=== PATIENT | male | born 1970 | race Caucasian/White ===

== ENCOUNTER → 2017-08-13 | Emergency (ER) | payer OTHER ==
[~2017-08-13] VITALS: Ht 177.8 cm; Wt 186.0 kg
[~2017-08-13] MED LIST: ATORVASTATIN CA40 M1 PO; CYCLOBENZAPRINE10 M1 PO; IBUPROFEN600 M1 PO; LISINOPRIL20 M1 PO; MEDROL4 M2 PO; OXYCODONE HCL10 M2 PO; PERCOCET 5-3251 EACH PO; TESTOSTERO200 MG/1 M IM
--- NOTE | 2017-08-13 11:10 | ED NECK/BACK PAIN COMPLAINT ---
History of Present Illness General Chief Complaint: Low Back Pain/Injury Stated Complaint: BIBA BACK PAIN Source: patient, old records, EMS Exam Limitations: no limitations Vital Signs & Intake/Output Vital Signs & Intake/Output Vital Signs Date Time Temp Pulse Resp B/P B/P Pulse O2 O2 Flow FiO2 Mean Ox Delivery Rate 08/13 1212 97.5 100 20 117/56 96 Room Air 08/13 0940 98.7 116 20 135/81 96 Room Air Allergies Coded Allergies: No Known Allergies (08/12/17) Reconcile Medications Atorvastatin Calcium 40 MG TABLET 1 TAB PO DAILY HIGH CHOLESTEROL (Reported) Cyclobenzaprine HCl 10 MG TABLET 1 TAB PO TID PRN muscle strain Ibuprofen 600 MG TABLET 1 TAB PO Q6PRN PRN pain with food Lisinopril 20 MG TABLET 1 TAB PO DAILY HTN (Reported) Methylprednisolone. (Medrol) 4 MG TAB.DS.PK 0 PO SEE ADMIN CRITERIA sciatica Oxycodone HCl 10 MG TABLET 1 TAB PO Q6P severe pain Oxycodone HCl/Acetaminophen (Percocet 5-325 MG Tablet) 5 MG-325 MG TABLET 1-2 TAB PO Q6P PRN PAIN Testosterone Cypionate 200 MG/ML VIAL 1 ML IM Q2W LOW TESTOSTERONE (Reported) Triage Note: PT BIBA FOR LOW BACK PAIN AND UNABLE TO GET OUT OF BED THIS MORNING DUE TO THE PAIN. PT GOT OFF EMS STRETCHER TO ER STRETCHER SLOWLY WITH MINIMA HELP. PT STATES PAIN RADIATES TO RIGHT SIDE OF ABDOMEN AND RIGHT LEG. SEEN HERE YESTERDAY FOR SAME, SENT HOME WITH PERCOCET. LAST PERCOCET TAKEN I HOUR AGO. Triage Nurses Notes Reviewed? yes Onset: 4 days ago Duration: day(s):, better, constant, continues in ED Timing: recent history Quality/Severity: severe, radiation, sharpness Location: lumbar spine, paraspinous muscles Radiation: buttocks, upper legs Method of Injury: unknown Loss of Consciousness: no loss of consciousness Associated Symptoms: lower back pain, muscle spasm HPI: 4 days prior to admission patient complains of sharp right low back pain radiating to his buttocks and thigh worse with turning bending movement. Prior to admission he awoke with severe sharp pain unable to get out of bed. He took a Percocet and screamed for help. He denies fever chills nausea vomiting diarrhea abdominal pain chest pain shortness breath headache dysuria rash bleeding hematuria recent injury. Past History Travel History Traveled to [place] past [place] day No Medical History Any Pertinent Medical History? 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 No Review of Systems Review of Systems Constitutional: Reports: no symptoms. Eyes: Reports: no symptoms. Ears, Nose, Throat, Mouth: Reports: no symptoms. Respiratory: Reports: no symptoms. Cardiovascular: Reports: no symptoms. Gastrointestinal/Abdominal: Reports: no symptoms. Musculoskeletal: Reports: see HPI, back pain. Skin: Reports: no symptoms. Neurological/Psychological: Reports: no symptoms. All Other Systems: Reviewed and Negative Physical Exam Physical Exam General Appearance: well developed/nourished, mild distress Head: atraumatic Eyes: Bilateral: PERRL, EOMI. Ears, Nose, Throat, Mouth: hearing grossly normal Neck: normal inspection, supple, full range of motion, normal alignment Respiratory: normal breath sounds, chest non-tender, no respiratory distress, quiet respiration, lungs clear Cardiovascular: regular rate/rhythm, normal peripheral pulses, norml femoral pulses equa Peripheral Pulses: 4+ carotid (R), 4+ carotid (L) Gastrointestinal: normal bowel sounds, soft, non-tender, no organomegaly Back: normal inspection, decreased range of motion, muscle spasm, no vertebral tenderness Extremities: non-tender, normal range of motion, straight leg raised Straight Leg Raising: Right: Pain at ____ degrees (10). Left: Pain at ____ degrees (10). Sensory: Medial Le: L4R, L4L. Top of Foot: 2: L5R, L5L. Sole of Foot: 2: SIR, CIELO. Motor: Deficit L4 Right: No Deficit L4 Left: No Deficit L5 Right: No Deficit L5 Left: No Deficit S1 Right: No Deficit S1 Right: No DTR: Deficit L4 Left: No Deficit S1 Left: No Deficit S1 Right: No Patellar: 3: L4 Right, L4 Left. 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 Discussed w/RAD: CT Scan. Radiology Impression: Lumbar spinal alignment is anatomic. Vertebral body heights are maintained. No evidence of compression deformity. The L1-L2, L2-L3, L3-L4 and L4-L5 intervertebral disc spaces are well preserved. There is mild narrowing of the L5-S1 intervertebral disc space. There is endplate sclerosis and osteophytosis at this level. There is vacuum disc phenomenon. There is no acute lumbar spine fracture. At L1-L2 there is no disc herniation. No significant spinal canal stenosis. At L2-L3 there is a shallow right foraminal disc herniation. There is mild facet arthropathy. No spinal canal stenosis. L3- L4 there is a circumferential disc bulge. There is facet arthropathy. There is minimal indentation of the ventral thecal sac without significant spinal canal stenosis. At L4-L5 there is a circumferential disc bulge. There is facet arthropathy. There is indentation of the ventral thecal sac. Minimal spinal canal narrowing. At L5-S1 there is a disc osteophyte complex that projects posteriorly indenting the ventral thecal sac. No significant spinal canal stenosis. There is facet arthropathy at this level. Departure Departure Time of Disposition: 1252 Disposition: HOME OR SELF CARE Condition: Stable Clinical Impression Primary Impression: Sciatica of right side associated with disorder of lumbar spine Secondary Impressions: Facet arthritis of lumbar region Referrals: Kamari LYON,Jose M Nolasco Call for orthopedic follow up Shelley Jewell MD Call for neurosurgical follow up Carlene LYON,Cody Oviedo (PCP/Family) Departure Forms: Customer Survey General Discharge Information Prescriptions: Current Visit Scripts Methylprednisolone. (Medrol) 0 PO SEE ADMIN CRITERIA #1 PAC Ibuprofen 1 TAB PO Q6PRN PRN pain #50 TAB with food Cyclobenzaprine HCl 1 TAB PO TID PRN muscle strain #30 TAB Oxycodone HCl 1 TAB PO Q6P #15 TAB
[2017-08-13 12:12] VITALS: BP 117/56
--- NOTE | 2017-08-13 13:18 | CT SCAN REPORT ---
EXAMINATION: CT LIMITED OR FOLLOWUP CLINICAL INFORMATION: Sciatica. Right lower back pain radiating to the leg COMPARISON: None TECHNIQUE: Reconstructed images from the CT of the abdomen and pelvis performed on 08/12/2017 are submitted. This includes coronal and sagittal reformatted images. DLP: No additional radiation. FINDINGS: There is slight levoscoliosis centered at the L3-L4 level. No acute fracture or subluxation. Vertebral body heights are maintained. There is disc space narrowing at L5-S1 with endplate sclerosis and small osteophytes. Vacuum disc phenomenon seen at this level. Evaluation for disc bulges is limited, particularly on these reconstructed images. Mild bony neuroforaminal narrowing bilaterally at L5-S1. There is no additional bony neuroforaminal or spinal canal narrowing. There is no convincing evidence for a large disc bulge, although visualization is significantly limited. Please see the report of the abdomen/pelvis CT for additional intra-abdominal and pelvic findings. IMPRESSION: Degenerative changes at the L5-S1 level with bilateral mild bony neuroforaminal narrowing. MRI is more sensitive for disc level pathology.
== END ==
LOC: ERH 09:39
DX: M54.41 Lumbago with sciatica, right side (principal); M47.816 Spondylosis without myelopathy or radiculopathy, lumbar region
CPT/HCPCS: 96374; 96375; 96376; J1885; J2930

== ENCOUNTER 2017-08-20 00:11 | Emergency (ER) | payer OTHER ==
[~2017-08-20] VITALS: Ht 177.8 cm; Wt 186.0 kg
--- NOTE | 2017-08-20 01:33 | ED NECK/BACK PAIN COMPLAINT ---
History of Present Illness General Chief Complaint: Neck/Upper Back Pain/Injury Stated Complaint: BIBA, BACK PAIN Source: patient, old records, EMS Exam Limitations: no limitations Vital Signs & Intake/Output Vital Signs & Intake/Output Vital Signs Date Time Temp Pulse Resp B/P B/P Pulse O2 O2 Flow FiO2 Mean Ox Delivery Rate 08/20 0501 96.0 99 20 138/92 97 Room Air 08/20 0014 97.5 100 20 141/106 96 Room Air Allergies Coded Allergies: No Known Allergies (08/12/17) Reconcile Medications Atorvastatin Calcium 40 MG TABLET 1 TAB PO DAILY HIGH CHOLESTEROL (Reported) Cyclobenzaprine HCl 10 MG TABLET 1 TAB PO TID PRN muscle strain Ibuprofen 600 MG TABLET 1 TAB PO Q6PRN PRN pain with food Lisinopril 20 MG TABLET 1 TAB PO DAILY HTN (Reported) Methylprednisolone. (Medrol) 4 MG TAB.DS.PK 0 PO SEE ADMIN CRITERIA sciatica Oxycodone HCl 10 MG TABLET 1 TAB PO Q6P severe pain Oxycodone HCl/Acetaminophen (Percocet 5-325 MG Tablet) 5 MG-325 MG TABLET 1-2 TAB PO Q6P PRN PAIN Testosterone Cypionate 200 MG/ML VIAL 1 ML IM Q2W LOW TESTOSTERONE (Reported) Triage Note: MOOKIE FROM HOME WITH C/O BACK PAIN AND SPASMS. PT REPORTS BEING SEEN AND TREATED HERE IN ER FOR SAME. PT STATES THAT HE WOKE UP 5 DAYS AGO WITH SUDDEN BACK PAIN. PER PT HE HAS A HERNIATED DISK AND PINCHED NERVES. Triage Nurses Notes Reviewed? yes Onset: Last week Duration: week(s):, constant, continues in ED, getting worse Timing: recent history Quality/Severity: severe, radiation, sharpness Location: lumbar spine, paraspinous muscles Radiation: upper legs, lower legs Method of Injury: unknown Loss of Consciousness: no loss of consciousness Modifying Factors: immobilization, movement, pain medication, rest Associated Symptoms: lower back pain, muscle spasm, tingling in legs/feet, trouble walking HPI: Patient returns for continued sharp constant low back pain radiating to his buttocks and legs worse with movement and turning bending associated with decreased range of motion. He reports being unable to obtain follow-up from neurosurgery and orthopedics due to insurance. He denies fever chills nausea vomiting diarrhea abdominal pain chest pain shortness of breath headache dysuria rash bleeding change in motor sensory function change in bowel bladder habit. Past History Travel History Traveled to [place] past 21 day No Medical History Any Pertinent Medical History? 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 No Review of Systems Review of Systems Constitutional: Reports: no symptoms. Eyes: Reports: no symptoms. Ears, Nose, Throat, Mouth: Reports: no symptoms. Respiratory: Reports: no symptoms. Cardiovascular: Reports: no symptoms. Gastrointestinal/Abdominal: Reports: no symptoms. Musculoskeletal: Reports: see HPI, back pain. Skin: Reports: no symptoms. Neurological/Psychological: Reports: no symptoms. All Other Systems: Reviewed and Negative Physical Exam Physical Exam General Appearance: well developed/nourished, alert, awake, anxious, moderate distress, severe distress, obese Head: atraumatic, normal appearance Eyes: Bilateral: normal appearance, PERRL, EOMI, normal inspection. Ears, Nose, Throat, Mouth: hearing grossly normal, moist mucous membrane Neck: normal inspection, supple, full range of motion, normal alignment Respiratory: normal breath sounds, chest non-tender, no respiratory distress, quiet respiration, lungs clear Cardiovascular: regular rate/rhythm, normal peripheral pulses, norml femoral pulses equa Peripheral Pulses: 4+ carotid (R), 4+ carotid (L) Gastrointestinal: normal bowel sounds, soft, non-tender, no organomegaly Back: normal inspection, decreased range of motion, muscle spasm, no vertebral tenderness Extremities: normal range of motion Straight Leg Raising: Right: Pain at ____ degrees (5). Left: Pain at ____ degrees (5). Sensory: Medial Le: L4R, L4L. Top of Foot: 2: L5R, L5L. Sole of Foot: 2: SIR, CIELO. Motor: Deficit L4 Right: No Deficit L4 Left: No Deficit L5 Right: No Deficit L5 Left: No Deficit S1 Right: No Deficit S1 Right: No Ext. Big Toe: 3: L5 Left, L5 Right. DTR: Deficit L4 Left: No Deficit L4 Right: No Deficit S1 Left: No Deficit S1 Right: No Patellar: 3: L4 Right, L4 Left. 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 tested Skin: intact, normal color, warm/dry Core Measures CVA/TIA Diagnosis: No Progress Differential Diagnosis: herniated disc, myofascial strain, sciatica Plan of Care: nsaid muscle relaxant opiate Departure Departure Time of Disposition: 0502 Disposition: HOME OR SELF CARE Condition: Stable Clinical Impression Primary Impression: Back pain at L4-L5 level Referrals: Carlene LYON,Cody Oviedo (PCP/Family) Departure Forms: Customer Survey General Discharge Information Prescriptions: Current Visit Scripts Ibuprofen 1 TAB PO Q6P PRN pain #30 TAB with food Cyclobenzaprine HCl 1 TAB PO TIDPRN PRN muscle spasm #30 TAB Oxycodone HCl/Acetaminophen (Percocet 10-325 MG Tablet) 1 TAB PO Q6P PRN severe pain #15 TAB
[2017-08-20 05:01] VITALS: BP 138/92
[2017-08-20] MEDS ORDERED: CYCLOBENZAPRINE10 M1 PO (05:04)
[2017-08-20] MEDS ORDERED: IBUPROFEN600 M1 PO (05:04)
[2017-08-20] MEDS ORDERED: PERCOCET 10-321 EACH PO (05:04)
== END 2017-08-20 05:38 ==
LOC: ERH 00:11
DX: M54.5 Low back pain (principal)
CPT/HCPCS: 96374; 96375; 96376; J1885

== ENCOUNTER 2017-08-25 20:57 | Emergency (ER) | payer OTHER ==
[~2017-08-25 20:57] MED LIST changes: +PERCOCET 10-321 EACH PO
--- NOTE | 2017-08-25 21:04 | ED NECK/BACK PAIN COMPLAINT ---
History of Present Illness General Chief Complaint: Lower Extremity Problems Stated Complaint: PT BIBA WITH BACK PAIN Source: patient Exam Limitations: no limitations Vital Signs & Intake/Output Vital Signs & Intake/Output Vital Signs Date Time Temp Pulse Resp B/P B/P Pulse O2 O2 Flow FiO2 Mean Ox Delivery Rate 08/25 2114 120 20 151/80 Allergies Coded Allergies: No Known Allergies (08/12/17) Reconcile Medications Atorvastatin Calcium 40 MG TABLET 1 TAB PO DAILY HIGH CHOLESTEROL (Reported) Lisinopril 20 MG TABLET 1 TAB PO DAILY HTN (Reported) Oxycodone HCl 10 MG TABLET 1 TAB PO Q6P severe pain Oxycodone HCl/Acetaminophen (Percocet 5-325 MG Tablet) 5 MG-325 MG TABLET 1-2 TAB PO Q6P PRN PAIN Oxycodone HCl/Acetaminophen (Percocet 10-325 MG Tablet) 10 MG-325 MG TABLET 1 TAB PO Q6P PRN severe pain Testosterone Cypionate 200 MG/ML VIAL 1 ML IM Q2W LOW TESTOSTERONE (Reported) Triage Nurses Notes Reviewed? yes Onset: Gradual Duration: day(s):, waxing and waning Timing: recent history Quality/Severity: moderate Location: lumbar spine Radiation: buttocks Context: acute exacerbation of chronic pain Method of Injury: unknown Loss of Consciousness: no loss of consciousness Modifying Factors: movement, rest Associated Symptoms: muscle spasm HPI: 47 yo gentleman, MOOKIE, h/o sciatica presents with lower back pain x several days, radiating down right leg. He notes no recent trauma, weakness. He notes difficulty ambulating, Past History Travel History Traveled to [place] past [place] day No Medical History Any Pertinent Medical History? 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 No Review of Systems Review of Systems Constitutional: Reports: no symptoms. Eyes: Reports: no symptoms. Ears, Nose, Throat, Mouth: Reports: no symptoms. Respiratory: Reports: no symptoms. Cardiovascular: Reports: no symptoms. Gastrointestinal/Abdominal: Reports: no symptoms. Musculoskeletal: Reports: no symptoms. Skin: Reports: no symptoms. Neurological/Psychological: Reports: no symptoms. All Other Systems: Reviewed and Negative Physical Exam Physical Exam General Appearance: well developed/nourished, mild distress Head: atraumatic Eyes: Bilateral: normal appearance. Ears, Nose, Throat, Mouth: hearing grossly normal Neck: normal inspection, supple, full range of motion Respiratory: normal breath sounds Cardiovascular: regular rate/rhythm Gastrointestinal: soft, non-tender Back: normal inspection, muscle spasm, no vertebral tenderness Extremities: normal range of motion Neurologic/Psych: awake, alert, oriented x 3, normal mood/affect Skin: intact, normal color, warm/dry Comments: pain elicited with elevation of right leg Core Measures CVA/TIA Diagnosis: No Progress Differential Diagnosis: sciatica vs musculoskeletal pain Plan of Care: pt seen immediately upon arrival via the medics..... pt then placed in waiting room. pt not in waiting room when room was available. Departure Departure Disposition: HOME OR SELF CARE Condition: Stable Clinical Impression Primary Impression: Back pain Secondary Impressions: Sciatica Referrals: Cody Concepcion MD (PCP/Family) Departure Forms: Customer Survey General Discharge Information
[2017-08-25 21:14] VITALS: BP 151/80
== END 2017-08-25 22:17 ==
LOC: ERH 20:57
DX: M54.41 Lumbago with sciatica, right side (principal)

== ENCOUNTER 2017-09-24 02:50 | Inpatient (IN) | payer OTHER ==
[~2017-09-24] VITALS: Ht 177.8 cm; Wt 178.7 kg
[~2017-09-24 02:50] MED LIST changes: +PREDNISONE50 M1 PO
[2017-09-24 03:37] LABS: ABSOLUTE BASOPHIL COUNT 0.1 /CUMM (0.0-0.2); ABSOLUTE EOSINOPHIL COUNT 0.1 /CUMM (0.0-0.7); ABSOLUTE GRANULOCYTE CT 8.5 /CUMM (1.4-6.5); ABSOLUTE LYMPH COUNT 1.6 /CUMM (1.2-3.4); ABSOLUTE MONOCYTE COUNT 0.7 /CUMM (0.10-0.60); BASOPHIL % 0.5 % (0.0-2.0); EOSINOPHIL % 0.9 % (0-5); GRANULOCYTE % 77.8 % (42.2-75.2); HEMATOCRIT 37.3 % (42-52); MEAN CORPUSCULAR HGB 27.3 PG (27.0-31.0); MEAN CORPUSCULAR HGB CONC 31.9 G/DL (33.0-37.0); MEAN CORPUSCULAR VOLUME 85.7 FL (80.0-94.0); MEAN PLATELET VOLUME 7.8 FL (7.4-10.4); PLATELET COUNT 231 /CUMM (130-400); RBC DISTRIBUTION WIDTH 14.6 % (11.5-14.5); RED BLOOD CELL CT 4.35 /CUMM (4.70-6.10); WHITE BLOOD CELL COUNT 10.9 /CUMM (4.8-10.8)
--- NOTE | 2017-09-24 03:57 | RADIOLOGY REPORT ---
EXAMINATION: XR CHEST CLINICAL INFORMATION: Fever and cough. Shortness of breath. COMPARISON: None TECHNIQUE: 2 views of the chest were obtained. FINDINGS: The lungs are well expanded. There is no focal consolidation, edema, or effusion. No pneumothorax. The cardiomediastinal silhouette is within normal limits. No acute osseous abnormality. IMPRESSION: No acute pulmonary findings.
--- NOTE | 2017-09-24 04:27 | ED DYSPNEA/ASTHMA COMPLAINT ---
History of Present Illness General Chief Complaint: Dyspnea (COPD, CHF, Other) Stated Complaint: BIBA SOB Source: patient, old records, EMS Exam Limitations: no limitations Vital Signs & Intake/Output Vital Signs & Intake/Output Vital Signs Date Time Temp Pulse Resp B/P B/P Pulse O2 O2 Flow FiO2 Mean Ox Delivery Rate 09/25 631 99.1 112 20 109/67 94 Room Air 09/24 433 103.0 129 22 122/66 95 Nasal 4.0L Cannula 09/24 432 101.1 09/24 352 100.6 09/24 034 97 Nasal 4.0L Cannula 09/24 308 99 Nasal 4.0L Cannula 09/24 300 100.6 135 22 135/65 97 Nasal 4.0L Cannula Allergies Coded Allergies: No Known Allergies (08/12/17) Reconcile Medications Atorvastatin Calcium 40 MG TABLET 1 TAB PO DAILY HIGH CHOLESTEROL (Reported) Gabapentin (Neurontin) 300 MG CAPSULE 1 CAP PO TID sciatica (Reported) Lisinopril 20 MG TABLET 1 TAB PO DAILY HTN (Reported) Oxycodone HCl 10 MG TABLET 1 TAB PO Q6P severe pain Oxycodone HCl/Acetaminophen (Percocet 5-325 MG Tablet) 5 MG-325 MG TABLET 1-2 TAB PO Q6P PRN PAIN Prednisone 50 MG TABLET 1 TAB PO DAILY SCIATICA Testosterone Cypionate 200 MG/ML VIAL 1 ML IM Q2W LOW TESTOSTERONE (Reported) Triage Note: PT BIBA FROM HOME C/O DIFF BREATHING OFF AND ON FOR 2 DAYS. O2 SAT 98% ON RA ON EMS ARRIVAL, O2 SAT 100% ON 4L NC. HAS BEEN USING ALBUTEROL INH WITHOUT RELIEF. ON ARRIVAL TO ED, TEMP 100.6, HR 135. PT COUGHING, CLEARING THROAT FREQUENTLY. STARTED GABAPENTIN 4 DAYS AGO WITH GOOD RELIEF OF SCIATICA PAIN. PT DENIES PAIN. DR WILSON AT BEDSIDE TO [facility] PT ON PT ARRIVAL TO ROOM Triage Nurses Notes Reviewed? yes Onset: Several days Duration: day(s):, constant, continues in ED, getting worse Timing: recent history Severity: moderate, severe Activities at Onset: rest Prior Episodes/Possible Cause: illness exposure Modifying Factors: Improves With: rest. Worsens With: movement. Associated Symptoms: cough, wheezing, weakness HPI: Several days prior to admission patient complains of chills productive cough increasing shortness of breath weakness. He's been using his inhaler more with little effect. He denies chest pain headache dysuria rash bleeding nausea vomiting diarrhea abdominal pain. Past History Travel History Traveled to [place] past [place] No Medical History Any Pertinent Medical History? 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 No Review of Systems Review of Systems Constitutional: Reports: no symptoms. EENTM: Reports: no symptoms. Respiratory: Reports: see HPI, cough, short of breath. Cardiovascular: Reports: no symptoms. GI: Reports: no symptoms. Genitourinary: Reports: no symptoms. Musculoskeletal: Reports: no symptoms. Skin: Reports: no symptoms. Neurological/Psychological: Reports: no symptoms. Hematologic/Endocrine: Reports: no symptoms. Immunologic/Allergic: Reports: no symptoms. All Other Systems: Reviewed and Negative Physical Exam Physical Exam General Appearance: well developed/nourished, alert, awake, anxious, moderate distress, obese Head: atraumatic, normal appearance Eyes: Bilateral: normal appearance, PERRL, EOMI. Ears, Nose, Throat: normal pharynx, normal ENT inspection, hearing grossly normal Neck: normal inspection, supple, full range of motion, no midline tenderness Respiratory: chest non-tender, decreased breath sounds, accessory muscle use, rhonchi, wheezing Cardiovascular: regular rate/rhythm, normal peripheral pulses, tachycardia, norml femoral pulses equa Peripheral Pulses: 4+ carotid (R), 4+ carotid (L) Gastrointestinal: normal bowel sounds, soft, non-tender, no organomegaly Extremities: normal inspection, normal capillary refill, normal range of motion, no ligament instability Neurologic/Psych: no motor/sensory deficits, awake, alert, normal gait, 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 No CVA/TIA Diagnosis No Sepsis Present: No Sepsis Focused Exam Completed? No Progress Differential Diagnosis: asthma, CHF, COPD, musculoskeletal pain, pneumonia Plan of Care: Orders Procedure Date/time Status Heart Healthy Diet 09/24 B Active TROPONIN LEVEL 09/24 1500 Active EKG 09/24 1500 Active TROPONIN LEVEL 09/24 0930 Active EKG 09/24 0930 Active ECHOCARDIOGRAM 09/24 0900 Active Pathway - chart 09/24 0628 Active Weight 09/24 0621 Active Teach/Educate 09/24 06 Active Pain Treatment and Response 09/24 06 Active Nutritional Intake, Monitor 09/24 06 Active Isolation 09/24 06 Active Patient Care Conference 09/24 06 Active URINALYSIS 09/24 0535 Active Pathway - chart 09/24 0533 Active House Staff 09/24 0533 Active Patient Data 09/24 0533 Active Code Status 09/24 0533 Active OXYGEN SETUP (GEN) 09/24 0524 Active Saline Lock 09/24 0524 Active Admit to inpatient 09/24 0524 Active Vital Signs 09/24 0524 Complete Activity/Ambulation 09/24 0524 Active Code Status 09/24 0524 Complete Patient Data 09/24 0451 Active BLOOD CULTURE 09/24 0436 Active Add-on Test (ER Only) 09/24 0424 Active LACTIC ACID 09/24 0330 Complete GLYCOSYLATED HGB 09/24 0330 Active B-TYPE NATRIURETIC PEP (BNP) 09/24 0330 Active TROPONIN LEVEL 09/24 0310 Active MAGNESIUM 09/24 0310 Active COMPREHENSIVE METABOLIC PANEL 09/24 0310 Active CBC WITHOUT DIFFERENTIAL 09/24 0310 Complete EKG 09/24 0310 Active TRC EVALUATION (GEN) 09/24 UNK Active Lab Add-on Test 09/24 UNK Active VTE Mechanical Prophylaxis 09/24 UNK Active Vital Signs 09/24 UNK Active Telemetry/Energy Specialist 09/24 UNK Active Intake & Output 09/24 UNK Active Activity/Ambulation 09/24 UNK Active Current Medications Sig/Dasia Start time Last Medication Dose Stop Time Status Admin Atorvastatin Calcium 40 MG DAILY 09/24 899 UNVr (Lipitor) Enoxaparin Sodium 40 MG DAILY 09/24 899 AC (Lovenox) Gabapentin 300 MG TID 09/24 899 UNVr (Neurontin) Lisinopril 20 MG DAILY 09/24 899 UNVr (Prinivil) Nystatin 1 JEROD TID 05/11 0900 UNVr (Mycostatin) Acetaminophen 650 MG Q6P PRN 09/24 629 UNVr (Tylenol) Oxycodone/ 1 TAB Q6P PRN 09/24 629 UNVr Acetaminophen (Percocet) Laboratory Tests 09/24/17 033: Lactic Acid 1.2 09/24/17329: Anion Gap 10, Estimated GFR > 60, BUN/Creatinine Ratio 15.0, Glucose 110 H, Hemoglobin A1c Pending, Calcium 8.6, Magnesium 1.8, Total Bilirubin 0.5, AST 20, ALT 27, Alkaline Phosphatase 118, Troponin I 0.14 *H, [id number] Pept 2150 H, Total Protein 6.2 L, Albumin 3.2 L, Globulin 3.0, Albumin/Globulin Ratio 1.1, CBC w Diff NO MAN DIFF REQ, RBC 4.35 L, MCV 85.7, MCH 27.3, MCHC 31.9 L, RDW 14.6 H, MPV 7.8, Gran % 77.8 H, Lymphocytes % 14.2 L, Monocytes % 6.6, Eosinophils % 0.9, Basophils % 0.5, Absolute Granulocytes 8.5 H, Absolute Lymphocytes 1.6, Absolute Monocytes 0.7 H, Absolute Eosinophils 0.1, Absolute Basophils 0.1 Microbiology 09/24 604 BLOOD: Blood Culture - RECD 09/24 549 BLOOD: Blood Culture - RECD Diagnostic Imaging: Viewed by Me: Radiology Read, CT Scan. Discussed w/RAD: Radiology Read, CT Scan. Radiology Impression: No pulmonary embolism or other acute intrathoracic abnormality. VTE: negative CXR Impression: no acute abnormality, no infiltrates Initial ED EKG: normal axis, normal intervals, normal p-waves, normal QRS complex, rhythm (sinus tachycardia) Rhythm Strip: sinus tachycardia Departure Departure Disposition: STILL A PATIENT Condition: Stable Clinical Impression Primary Impression: Pneumonia Secondary Impressions: Elevated troponin, Fever Referrals: Carlene LYON,Cody Oviedo (PCP/Family) Departure Forms: Customer Survey General Discharge Information Admission Note Spoke With: Rox Flores MD Documentation of Exam: Documentation of any treatments & extenuating circumstances including Concerns Regarding Discharge (functional status, medication knowledge or non-compliance, living conditions, etc.) that warrant an admission rather than observation: Supplemental oxygen follow cultures IV antibiotics serial lab exam medication adjustment continuing care discharge planning Critical Care Note Critical Care Note Critical Care Time: non-applicable
--- NOTE | 2017-09-24 05:28 | History & Physical ---
Curry LYON,Therese 09/24/17 0527: General Information and HPI MD Statement: I have seen and personally examined GEORGINA RODRIGUEZ and documented this H&P. The patient is a 47 year old M who presented with a patient stated chief complaint of [shortness of breath]. Source of Information: patient, EMS Exam Limitations: no limitations History of Present Illness: Patient is a 47 YO F with PMH significant for HTN, HLD, TIFFANIE on CPAP, Intertriginous Tinea (7yrs), hypogonadism, Sciatica (recently diagnosed) presented to [facility] with waxing and wanning episodes of shortness of breath for the past 2 days. Patient reports shortness of breath with exertion for the past 2 days, denies any chest pain, palpitations. He recently had oral thrush after which his baseline productive cough increased to yellowish color typically copious in the morning. He reports recent decreased mobility due to right groin pain, increased swelling in the leg around a week ago, decreased appetite, feeling cold/chills and hot at the same time. Indepedent of all the daily acitivities. He visited ER for the past 6 weeks around 6 times due to pain in the back and groin, this is further evaluated - diagnosed to have sciatica and recently stated on gabapentine due to increased need for narcotics during these mutiple visits. He was also found to have renal calculus for which he was asked to follow up with urology. PMH HTN HLD TIFFANIE on CPAP Stress test at [facility] 4 yrs ago - normal Allergies NKDA Meds Lisinopril - 20mg daily Atrovastatin - 40mg daily Gabapentine 300mg TID Social history Smokes - 1 pack per day for 7 yrs, drinks once a week, occasionally takes marijuana. Allergies/Medications Allergies: Coded Allergies: No Known Allergies (08/12/17) Home Med list Aspirin (Ecotrin*) 81 MG TABLET.DR 1 TAB PO DAILY Heart Health Atorvastatin Calcium 40 MG TABLET 1 TAB PO DAILY HIGH CHOLESTEROL (Reported) Gabapentin (Neurontin) 300 MG CAPSULE 1 CAP PO TID sciatica (Reported) Lisinopril 20 MG TABLET 1 TAB PO DAILY HTN (Reported) Oxycodone HCl 10 MG TABLET 1 TAB PO Q6P severe pain Oxycodone HCl/Acetaminophen (Percocet 5-325 MG Tablet) 5 MG-325 MG TABLET 1-2 TAB PO Q6P PRN PAIN Prednisone 50 MG TABLET 1 TAB PO DAILY SCIATICA Testosterone Cypionate 200 MG/ML VIAL 1 ML IM Q2W LOW TESTOSTERONE (Reported) Compliance With Home Meds: FAIR Past History Travel History Traveled to [place] past [place] day No Medical History Neurological: NONE EENT: NONE Cardiovascular: hypertension, hyperlipidemia Respiratory: NONE Gastrointestinal: NONE Hepatic: NONE Renal: NONE Musculoskeletal: sciatica, DISC PROBLEM Psychiatric: NONE Endocrine: LOW TESTOSTERONE Blood Disorders: NONE Cancer(s): NONE 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 Home Services at Home: None Smoking Status: Current Everyday Smoker ETOH Use: denies use Illicit Drug Use: marijuana Functional Ability ADLs Independent: dressing, eating, toileting, bathing. Ambulation: independent IADLs Independent: shopping, housework, finances, food prep, telephone, transportation , medication admin. Review of Systems Review of Systems Constitutional: Reports: see HPI. EENTM: Reports: see HPI. Cardiovascular: Reports: see HPI. GI: Reports: no symptoms. Genitourinary: Reports: no symptoms. Exam & Diagnostic Data Last 24 Hrs of Vital Signs/I&O Vital Signs Date Time Temp Pulse Resp B/P B/P Pulse O2 O2 Flow FiO2 Mean Ox Delivery Rate 09/24 433 103.0 129 22 122/66 95 Nasal 4.0L Cannula 09/24 0433 101.1 09/24 0353 100.6 09/24 0341 97 Nasal 4.0L Cannula 09/24 030 99 Nasal 4.0L Cannula 09/24 030 100.6 135 22 135/65 97 Nasal 4.0L Cannula Intake & Output 09/24 0800 09/24 0000 09/23 1600 Intake Total 0 Output Total Balance 0 Intake, Oral 0 Patient 181.437 kg Weight Weight Reported by Patient Measurement Method Physical Exam General Appearance Alert, Oriented X3, Cooperative, Mild Distress, morbidly obese Skin No Rashes, tattoos all over the left hand, left side of chest Skin Temp/Moisture Exam: Warm/Dry HEENT Atraumatic, PERRLA, EOMI Neck Supple, cannot elicit JVD Cardiovascular Normal S1, Normal S2, No Murmurs Lungs significant wheezing, decreased breath sounds bilateral bases Abdomen Normal Bowel Sounds, Soft, No Tenderness Neurological Normal Gait, Normal Speech, Strength at 5/5 X4 Ext, Normal Tone Extremities No Clubbing, No Cyanosis, 3+ edema bilaterally Body Front and Back (Adult) 1) significant intertriginous fungal infection with mild erythema 2) intertriginous Tinea 3) Intertriginuous tinea Last 24 Hrs of Labs/Jessee: Laboratory Tests 09/24/17 033: Lactic Acid 1.2 09/24/17 033: Anion Gap 10, Estimated GFR > 60, BUN/Creatinine Ratio 15.0, Glucose 110 H, Hemoglobin A1c Pending, Calcium 8.6, Magnesium 1.8, Total Bilirubin 0.5, AST 20, ALT 27, Alkaline Phosphatase 118, Troponin I 0.14 *H, Bba-H-Mrzwabtfbzq Pept 2150 H, Total Protein 6.2 L, Albumin 3.2 L, Globulin 3.0, Albumin/Globulin Ratio 1.1, CBC w Diff NO MAN DIFF REQ, RBC 4.35 L, MCV 85.7, MCH 27.3, MCHC 31.9 L, RDW 14.6 H, MPV 7.8, Gran % 77.8 H, Lymphocytes % 14.2 L, Monocytes % 6.6, Eosinophils % 0.9, Basophils % 0.5, Absolute Granulocytes 8.5 H, Absolute Lymphocytes 1.6, Absolute Monocytes 0.7 H, Absolute Eosinophils 0.1, Absolute Basophils 0.1 Microbiology 09/24 604 BLOOD: Blood Culture - RECD 09/24 549 BLOOD: Blood Culture - RECD Diagnostic Data EKG Results Sinus tachycardia Assessment/Plan Assessment: Patient is a 47 YO M with PMH for HTN, HLD, TIFFANIE on CPAP, hypogonadism, Sciatica (recently diagnosed) presented to [facility] with waxing and wanning episodes of shortness of breath for the past 2 days associated with fevers, chills for the past 4 days. He had been recently immobile due to severe right groin pain with erythema. Also had increased lower extremity swelling in the lower extremities for the past week. He has been on steroids recently for several times during his ER visits for pain. VS at admission are significant for Tmax of 103, HR 135, BP 135/65mmHg, 98% on RA. Physical exam is significant for morbid obesity, wheezing on lung exam, extensive fungal dissemination in the bilateral grion/axillary areas, 3+ pitting edema on bilateral lower extremities. Labs did show white count of 10.1 with left shift. H&H 11/37, chem panel unremarkable, troponin of 0.14, ProBNP 2150, glucose 110, lactic acid 1.2. UA pending. CXR unremarkable. CTA ruled out PE, did show bilateral atelectasis. Differentials SIRS - fever with tachycardia 1. Infection -- Either fungal infection of intertrigenous region or cellulitis or panniculitis 2. Clot due to immobility (PE ruled out) 3. PNA - (ruled out with CXR and CT) 4. Influenza 5. Atelectasis New onset congestive heart failure - with dyspnea on exertion, leg edema, smoking history. Reasons could be sepsis leading to further worsening of stable CAD. Plan Admit to telemtry floor Problem list 1. Fever with tachycardia 2. Extensive Intertrigenous fungal infection 3. Elevated troponin 4. HTN 5. HLD 6. TIFFANIE on CPAP 7. Low testosteron levels 8. Sciatica 1. Fever with tachycardia Porbable skin/lung origin Patient has been having fevers for the past 4 days, dyspneic, recently got treated for fungal throat infection. He had long standing history of intertrigenous fungal infection which got worse lately and unable to walk secondary to it. Likely recent steroid use might have worsened his underlying fungal infeciton. Need to closely watch for further worsening. * A single dose of ceftriaxone and azithro given in ER. * Nystatin powder locally for fungal infection - needs oral medication * follow up Flu swab and blood cultures * Monitor vitals Q shift 2. Extensive Intertrigenous fungal infection Patient had long standing fungal infection since 7 yrs. It recently got worse with probably steroid medications. No good relief from previous local treatments. On exam extensive skin involvement. * Nystatin powder locally * Consider Xay if further worsens * follow up blood cultures 3. Elevated troponin Patient had HTN, smoking history. Mother with CHD (L to R shunt). He had stress test 4 yrs ago which was normal. Patient was tachycardic with high grade fever which would have lead to elevated troponin due to further worsening of CAD. * serial EKG and trop * Cardio consult * ECHO * elevated proBNP with edema - possible CHF * one dose of furosemide 4. HTN Patient was on lisinopril 20mg daily. we will continue 5. HLD Patient was on atorvastatin. we will continue for now. 6. TIFFANIE on CPAP 7. Low testosteron levels Hold for now testosterone 8. Sciatica Patient had multiple ER visits in the past 2 months for sciatica, several times got pain medications and steroids. Recently started on gabapentine 300mg TID. * Continue gabapentine 300mg TID DVT prophylaxis SC lovenox Code status Full code As Ranked By This Provider Problem List: 1. Fever 2. Elevated troponin Core Measures/Misc (01/31) Acute Coronary Syndrome ACS Diagnosis: Yes Congestive Heart Failure Congestive Heart Failure Diagnosis Yes Cerebrovascular Accident CVA/TIA Diagnosis: No VTE (View Protocol) VTE Risk Factors Acute Medical Illness No Mechanical VTE Prophylaxis d/t N/A MechProphylax Ordered No VTE Pharm Prophylaxis d/t NA PharmProphylax ordered Sepsis (View protocol) Sepsis Present: No Resident Review Statement Resident Statement: examined this patient, discussed with graphic design intern, agreed with graphic design intern, discussed with family, reviewed EMR data (avail), discussed with nursing , discussed with case mgmt, reviewed images, amended to note Other Findings: as above Pina Beaulieu 09/24/17 1102: Attending MD Review Statement Attending Statement Attending MD Statement: examined this patient, discuss w/resident/PA/DRESS FINISHER, agreed w/resident/PA/DRESS FINISHER, discussed with family, reviewed EMR data (avail), discussed with nursing, discussed with case mgmt, reviewed images, amended to note Attending Assessment/Plan: Patient with TIFFANIE and BMI 56.7 morbid obesity comes with fever and tachycardia with mild elveation of cardiac enzymes. Patient being admitted to telemtry services for possible type 2 IA r/o ACS. Cardiology consult, ECHO. Obtain serial cardiac enzymes, empiric unasyn, panculture, UA. CPAP at night. gi/dvt prophyalxis full code.
--- NOTE | 2017-09-24 06:16 | CT SCAN REPORT ---
EXAMINATION: CT ANGIOGRAM OF THE CHEST WITH AND WITHOUT CONTRAST (CT PULMONARY ANGIOGRAM FOR PE) CLINICAL INFORMATION: Cough and shortness of breath COMPARISON: Chest radiograph from today. TECHNIQUE: Prior to contrast administration, noncontrast localization images were obtained. Subsequently, multidetector volumetric imaging was performed from the thoracic inlet to below the diaphragms following the administration of 85 mL Optiray 320 intravenous contrast. No contrast reaction reported. Sagittal, coronal, and MIP oblique sagittal reformatted images were obtained on the CT workstation, uploaded to PACS, and reviewed. Total exam dose-length product 629 mGy-cm. FINDINGS: QUALITY OF STUDY/CONTRAST BOLUS: Satisfactory PULMONARY ARTERIES: No central or segmental pulmonary emboli. THORACIC AORTA: No aneurysm or dissection. LUNG: The central airways are patent. No consolidation. No suspicious pulmonary nodules. Minimal dependent atelectasis bilaterally. PLEURA: No pleural effusion or pneumothorax. MEDIASTINUM: Normal heart size. No pericardial effusion. No hilar or mediastinal lymphadenopathy. No evidence of septal bowing or right heart strain. CHEST WALL/AXILLA: No axillary or internal mammary lymphadenopathy. OSSEOUS STRUCTURES: No acute or suspicious osseous abnormality. Mild degenerative changes of the spine. UPPER ABDOMEN: Unremarkable. No reflux of contrast into the hepatic veins to suggest elevated right heart pressures. IMPRESSION: No pulmonary embolism or other acute intrathoracic abnormality. VTE: negative
[2017-09-24] MEDS ORDERED: NEURONTIN300 M1 PO (06:29)
[2017-09-24 07:09] VITALS: BP 132/76
--- NOTE | 2017-09-24 13:57 | Cons- Cardiology ---
General Information and HPI Consulting Request Date of Consult: 09/24/17 Requested By: Rox Flores MD Reason for Consult: Shortness of breath, sleep apnea, lower extremity edema, rule out congestive heart failure Source of Information: patient, old records Exam Limitations: clinical condition History of Present Illness: The patient is a 47-year-old, overweight white male. His past medical history is remarkable for hypertension, hyperlipidemia, obstructive sleep apnea on CPAP, hypogonadism, recently diagnosed sciatica, etc. Patient presented to the emergency room and was ultimately admitted with episodes of increasing shortness of breath over the last several days. He has also had some exertional shortness of breath as well. No other cardiac symptoms were noted, specifically there was no chest discomfort, lightheadedness, dizziness or palpitations. He has also had worsening lower extremity edema. In addition, the patient reports some increased and yellow sputum production. During my visit with the patient, he was extremely somnolent and lethargic. I was barely able to keep him awake for completion of one sentence of discussion. The patient does note that he has been taking Neurontin for his sciatica/back pain. Allergies/Medications Allergies: Coded Allergies: No Known Allergies (08/12/17) Home Med List: Aspirin (Ecotrin*) 81 MG TABLET.DR 1 TAB PO DAILY Heart Health Atorvastatin Calcium 40 MG TABLET 1 TAB PO DAILY HIGH CHOLESTEROL (Reported) Gabapentin (Neurontin) 300 MG CAPSULE 1 CAP PO TID sciatica (Reported) Lisinopril 20 MG TABLET 1 TAB PO DAILY HTN (Reported) Oxycodone HCl 10 MG TABLET 1 TAB PO Q6P severe pain Oxycodone HCl/Acetaminophen (Percocet 5-325 MG Tablet) 5 MG-325 MG TABLET 1-2 TAB PO Q6P PRN PAIN Prednisone 50 MG TABLET 1 TAB PO DAILY SCIATICA Testosterone Cypionate 200 MG/ML VIAL 1 ML IM Q2W LOW TESTOSTERONE (Reported) Current Medications: Current Medications Sig/Dasia Start time Last Medication Dose Route Stop Time Status Admin Acetaminophen 650 MG Q6P PRN 09/24 0630 AC PO Acetaminophen 0 .STK-MED ONE 09/25 355 DC PO Acetaminophen 975 MG ONCE ONE 09/24 314 DC 09/24 PO 09/25 315 0353 Albuterol Sulfate 3 ML ONCE ONE 09/24 314 DC 09/24 INH 05/11 0316 0327 Ampicillin Sodium/ 3,000 MG Q6 09/25 0600 AC Sulbactam Sodium IV Sodium Chloride 100 ML Atorvastatin Calcium 40 MG 1700 09/24 1700 AC PO Azithromycin 500 MG ONCE ONE 09/24 0445 DC 09/24 Sodium Chloride 250 ML IV 09/24 0544 0615 Ceftriaxone Sodium 0 .STK-MED ONE 09/24 0603 DC .ROUTE Ceftriaxone Sodium 1,000 MG ONCE ONE 09/24 0445 DC 09/24 IV 09/24 0446 0615 Enoxaparin Sodium 40 MG DAILY 09/24 09 AC 09/24 SC 1053 Furosemide 20 MG ONCE ONE 09/24 09 DC 09/24 PO 09/24 0901 1053 Gabapentin 300 MG TID 09/24 09 AC 09/24 PO 1053 Ipratropium [place] 2.5 ML ONCE ONE 09/24 0315 DC 09/24 INH 09/24 0316 0327 Lisinopril 20 MG DAILY 09/24 09 AC 09/24 PO 1053 Nystatin 1 JEROD TID 09/24 09 AC 09/24 TOP 1053 Oxycodone/ 1 TAB Q6P PRN 09/24 0630 AC Acetaminophen PO Patient Medication 1 ED ONE ONE 09/24 1345 DC Teaching ED 09/24 1346 Prednisone 0 .STK-MED ONE 09/24 0357 DC PO Prednisone 60 MG ONCE ONE 09/24 0315 DC 09/24 PO 09/24 0316 0353 Sodium Chloride 1,000 ML BOLUS ONE 09/24 0445 DC 09/24 IV 09/24 0544 0615 Sodium Chloride 1,000 ML BOLUS ONE 09/24 0445 DC IV 09/24 0544 Past History Travel History Traveled to [place] past 21 day No Medical History Blood Transfusion Hx: No Neurological: NONE EENT: NONE Cardiovascular: hypertension, hyperlipidemia Respiratory: NONE Gastrointestinal: NONE Hepatic: NONE Renal: NONE Musculoskeletal: sciatica, DISC PROBLEM Psychiatric: NONE Endocrine: LOW TESTOSTERONE Blood Disorders: NONE Cancer(s): NONE CORROSION CONTROL FITTER/Reproductive: NONE Surgical History Surgical History: non-contributory Family History Relations & Conditions If Any: MOTHER FH: CVA (cerebrovascular accident) FHx: congenital heart disease FATHER FH: CVA (cerebrovascular accident) Psychosocial History Where Do You Live? Home Services at Home: None Smoking Status: Current Everyday Smoker ETOH Use: denies use Illicit Drug Use: marijuana Functional Ability ADLs Independent: dressing, eating, toileting, bathing. Ambulation: independent IADLs Independent: shopping, housework, finances, food prep, telephone, transportation , medication admin. Exam & Diagnostic Data Vital Signs and I&O Vital Signs Date Time Temp Pulse Resp B/P B/P Pulse O2 O2 Flow FiO2 Mean Ox Delivery Rate 09/24 1118 Room Air Room Air 09/24 1117 99 99 09/24 1053 89 132/76 09/24 0800 95 Room Air 09/24 0709 98.4 108 22 132/76 95 Room Air 09/24 0704 94 Room Air 09/24 0632 99.1 112 20 109/67 94 Room Air 09/24 0434 103.0 129 22 122/66 95 Nasal 4.0L Cannula 09/24 0433 101.1 09/24 0353 100.6 09/24 0341 97 Nasal 4.0L Cannula 09/24 0309 99 Nasal 4.0L Cannula 09/24 0301 100.6 135 22 135/65 97 Nasal 4.0L Cannula Intake & Output 09/24 0000 09/23 1600 09/23 0000 Intake Total 0 Output Total Balance 0 Intake, Oral 0 Patient 395 lb Weight Weight Bed scale Measurement Method Physical Exam: General Appearance: well developed significantly overweight white male, markedly lethargic but transiently arousable, on BiPAP Head: normal HEENT: Normal Neck: supple, JVP not appreciated, carotid upstrokes normal bilaterally, no masses or thyromegaly Respiratory: chest non-tender, bilateral rhonchi with scattered wheezing and decreased air entry bilaterally Cardiovascular: regular rate/rhythm, normal S1, S2, distant heart sounds, no audible murmur Abdomen: normal bowel sounds, soft, non-tender Extremities: normal inspection, bilateral lower extremity edema Vascular: Pulses are 2+ and equal bilaterally Neurologic: Grossly normal/nonfocal Labs/Jessee Results: Laboratory Tests 09/24 09/24 09/24 0930 0854 0330 Chemistry Lactic Acid (0.7 - 2.1 mmol/L) 1.2 Troponin I (<0.11 ng/ml) 0.51 *H Urines Urine Color (YEL,AMB,STR) YEL Urine Clarity (CLEAR) CLEAR Urine pH (5.0 - 8.0) 6.5 Ur Specific [place] (1.001 - 1.035) 1.010 Urine Protein (NEG,<30 MG/DL) NEG Urine Ketones (NEG) NEG Urine Nitrite (NEG) NEG Urine Bilirubin (NEG) NEG Urine Urobilinogen (0.1 - 1.0 EU/dl) 0.2 Ur Leukocyte Esterase (NEG) NEG Ur Microscopic EXAM NOT REQUIRED Urine Hemoglobin (NEG) NEG Urine Glucose (N MG/DL) NEG 09/24 0330 Chemistry Sodium (137 - 145 mmol/L) 143 Potassium (3.5 - 5.1 mmol/L) 4.2 Chloride (98 - 107 mmol/L) 103 Carbon Dioxide (22 - 30 mmol/L) 30 Anion Gap (5 - 16) 10 BUN (9 - 20 mg/dL) 15 Creatinine (0.7 - 1.2 mg/dL) 1.0 Estimated GFR (>60 ml/min) > 60 BUN/Creatinine Ratio (7 - 25 %) 15.0 Glucose (65 - 99 mg/dL) 110 H Hemoglobin A1c (4.2 - 5.8 %) 6.2 H Calcium (8.4 - 10.2 mg/dL) 8.6 Magnesium (1.6 - 2.3 mg/dL) 1.8 Total Bilirubin (0.2 - 1.3 mg/dL) 0.5 AST (17 - 59 U/L) 20 ALT (21 - 72 U/L) 27 Alkaline Phosphatase (< 127 U/L) 118 Troponin I (<0.11 ng/ml) 0.14 *H Hjk-[id number]-Entolrhjvtg Pept (<125 pg/mL) 2150 H Total Protein (6.3 - 8.2 g/dL) 6.2 L Albumin (3.5 - 5.0 g/dL) 3.2 L Globulin (1.9 - 4.2 gm/dL) 3.0 Albumin/Globulin Ratio (1.1 - 2.2 %) 1.1 Hematology CBC w Diff NO MAN DIFF REQ WBC (4.8 - 10.8 /CUMM) 10.9 H RBC (4.70 - 6.10 /CUMM) 4.35 L Hgb (14.0 - 18.0 G/DL) 11.9 L Hct (42 - 52 %) 37.3 L MCV (80.0 - 94.0 FL) 85.7 MCH (27.0 - 31.0 PG) 27.3 MCHC (33.0 - 37.0 G/DL) 31.9 L RDW (11.5 - 14.5 %) 14.6 H Plt Count (130 - 400 /CUMM) 231 MPV (7.4 - 10.4 FL) 7.8 Gran % (42.2 - 75.2 %) 77.8 H Lymphocytes % (20.5 - 51.1 %) 14.2 L Monocytes % (1.7 - 9.3 %) 6.6 Eosinophils % (0 - 5 %) 0.9 Basophils % (0.0 - 2.0 %) 0.5 Absolute Granulocytes (1.4 - 6.5 /CUMM) 8.5 H Absolute Lymphocytes (1.2 - 3.4 /CUMM) 1.6 Absolute Monocytes (0.10 - 0.60 /CUMM) 0.7 H Absolute Eosinophils (0.0 - 0.7 /CUMM) 0.1 Absolute Basophils (0.0 - 0.2 /CUMM) 0.1 Diagnostic Data CXR Results FINDINGS: The lungs are well expanded. There is no focal consolidation, edema, or effusion. No pneumothorax. The cardiomediastinal silhouette is within normal limits. No acute osseous abnormality. IMPRESSION: No acute pulmonary findings. Other Results CTA chest: IMPRESSION: No pulmonary embolism or other acute intrathoracic abnormality. Assessment/Plan Assessment/Plan Assessment: 1. Worsening shortness of breath-I suspect the patient's shortness of breath is likely related to underlying pulmonary issues, obesity, sleep apnea, etc. There is no evidence of overt heart failure. He does have lower extremity edema which is likely related to sleep apnea, pulmonary hypertension, venous insufficiency, etc. His echocardiogram shows significant left ventricular hypertrophy with normal left ventricular ejection fraction. Accurate assessment of wall motion was not possible due to the quality of the images obtained. The right ventricular systolic pressure could not be estimated on the echocardiogram. 2. Elevated troponin consistent with type II DC 3. Obstructive sleep apnea on BiPAP 4. Obesity 5. History of hypertension 6. Significant left ventricular hypertrophy 7. Abnormal ECG-likely related to hypertension and LVH. The possibility of underlying ischemic disease cannot be excluded. 8. Elevated proBNP Recommendations: -Continue to monitor on telemetry -Continue current respiratory treatment with BiPAP -Please check a baseline ABG to assess for hypercapnia -Follow troponin until troponin is decreasing -Continue regular blood pressure medications for now. -In view of the elevated troponin, barring any unforeseen issues, the patient will likely benefit eventually from a pharmacologic nuclear stress test. Consult Acknowledgment - Thank you for your consult request.
--- NOTE | 2017-09-24 14:23 | Patient Discharge Instructions ---
Discharge Instructions General Discharge Information You were seen/treated for: Shortness of Breath Lower extremity swelling Bacteremia Special Instructions: Please follow up with your PCP and metal moulder within one week of discharge. Please return to the ED for any worsening symptoms or concerns Diet Continue normal diet: Yes Recommended Diet: Heart Healthy Activity Full Activity/No Limits: Yes Acute Coronary Syndrome Inclusion Criteria At DC or during hospital stay patient has or had the following: ACS DIAGNOSIS No Discharge Core Measures Meds if any: Prescribed or Continued at Discharge Meds if any: NOT Prescribed or Continued at Discharge Congestive Heart Failure Inclusion Criteria At DC or during hospital stay patient has or had the following: CHF DIAGNOSIS No Discharge Core Measures Meds if any: Prescribed or Continued at Discharge Meds if any: NOT Prescribed or Continued at Discharge Cerebrovascular accident Inclusion Criteria At DC or during hospital stay patient has or had the following: CVA/TIA Diagnosis No Discharge Core Measures Meds if any: Prescribed or Continued at Discharge Meds if any: NOT Prescribed or Continued at Discharge Venous thromboembolism Inclusion Criteria VTE Diagnosis No VTE Type NONE VTE Confirmed by (Test) NONE Discharge Core Measures - Per Current guidelines, there needs to be overlap - treatment for the first 5 days of Warfarin therapy. - If discharged on Warfarin prior to 5 days of - overlap therapy, the patient will need to be - assessed for post discharge needs including - *Post discharge parental anticoagulation - *Warfarin and/or parental anticoagulation education - *Follow up date to check INR post discharge At least 5 days overlap therapy as Inpatient No Meds if any: Prescribed or Continued at Discharge Note: Overlap Therapy is Warfarin and Anticoagulant Meds if any: NOT Prescribed or Continued at Discharge
[2017-09-24] MEDS ORDERED: ASPIRIN EC81 M1 PO (14:24)
[2017-09-24 14:47] VITALS: BP 142/94
--- NOTE | 2017-09-24 16:07 | ECHOCARDIOGRAM REPORT ---
GEORGINA RODRIGUEZ Age: 47 : 1970 Gender: M Exam Date: 09/24/2017 09:36 Exam Location: [address] Ht (in): 70 Wt (lb): 400 BSA: 3.10 BP: 132 / 76 Ordering Physician: Therese Zapien MD Referring Physician: Therese Zapien MD Technologist: Hunter Warren [facility] Room Number: 179-2 Indications: HEART FAILURE Rhythm: Sinus Technical Quality: Fair, Very technically difficult study FINDINGS Left Ventricle Normal size left ventricle. No obvious regional wall motion abnormalities. Left ventricular wall thickness severely increased. Normal left ventricular ejection fraction estimated at 55-60%. Right Ventricle Right ventricle not well visualized. Right Atrium Right atrium not well visualized, grossly normal. Left Atrium Left atrial dilatation. Mitral Valve Mild mitral stenosis. Mitral valve thickened. Aortic Valve Trileaflet aortic valve. Diffuse thickening (sclerosis) of the aortic valve cusps without reduced excursion. No aortic stenosis. No aortic regurgitation. Tricuspid Valve Tricuspid valve not well visualized. Pulmonic Valve Pulmonic valve not well visualized. Pericardium No pericardial effusion. Great Vessels Aortic root and proximal ascending aorta not well visualized, grossly normal. CONCLUSIONS 1. This was a technically difficult and limited study due to the patient's body habitus and clinical status. 2. Aortic sclerosis is present with no valvular stenosis or insufficiency. 3. Mitral leaflet thickening is present with Doppler evidence of mild mitral stenosis (MVA 1.6 cm2) and mild mitral insufficiency. with left atrial enlargement 4. The left ventricular chamber size and systolic function appear normal. Moderate to severe left ventricular hypertrophy is present. Accurate wall motion assessment was not possible. 5. The right heart structures were not optimally assessed. The RV systolic pressure could not be assessed on this examination. 6. Additional images were obtained following the administration of IV contrast Orion Colon M.D. (Electronically Signed) Final Date: 24 Sep 2017 16:06 MEASUREMENTS (Male / Female) Normal Values 2D ECHO LV Diastolic Diameter PLAX 4.3 cm 4.2 - 5.9 / 3.9 - 5.3 cm LV Systolic Diameter PLAX 2.7 cm 2.1 - 4.0 cm LV Fractional Shortening PLAX 37.2 % 25 - 46 % LV Ejection Fraction 2D Teich 67.5 % IVS Diastolic Thickness 2.0 cm LVPW Diastolic Thickness 1.8 cm LV Relative Wall Thickness 0.9 LVOT Diameter 2.4 cm Aortic Root Diameter 3.3 cm LA Systolic Diameter LX 4.0 cm 3.0 - 4.0 / 2.7 - 3.8 cm DOPPLER AV Peak Velocity 201.0 cm/s AV Peak Gradient 16.2 mmHg AV Mean Velocity 113.0 cm/s AV Mean Gradient 7.0 mmHg AV Velocity Time Integral 35.7 cm LVOT Peak Velocity 227.0 cm/s LVOT Peak Gradient 20.6 mmHg LVOT Mean Velocity 145.0 cm/s LVOT Mean Gradient 10.0 mmHg LVOT Velocity Time Integral 44.2 cm LVOT Stroke Volume 200.0 cm AV Area Cont Eq vti 5.6 cm AV Area Cont Eq pk 5.1 cm MV Peak Velocity 203.0 cm/s MV Peak Gradient 16.5 mmHg MV Mean Velocity 118.0 cm/s MV Mean Gradient 6.0 mmHg Mitral E Point Velocity 130.0 cm/s Mitral A Point Velocity 202.0 cm/s Mitral E to A Ratio 0.6 MV PHT Velocity 153.0 cm/s MV Deceleration [place] 337.0 cm/s MV Pressure Half Time 136.2 ms MV Area PHT 1.6 cm MV Deceleration Time 408.0 ms LV E' Lateral Velocity 12.6 cm/s Mitral E to LV E' Lateral Ratio 10.3
[2017-09-24 22:31] VITALS: BP 148/80
[2017-09-25 06:58] VITALS: BP 114/62
[2017-09-25 08:08] LABS: ABSOLUTE BASOPHIL COUNT 0 /CUMM (0.0-0.2); ABSOLUTE EOSINOPHIL COUNT 0.1 /CUMM (0.0-0.7); ABSOLUTE LYMPH COUNT 3.1 /CUMM (1.2-3.4); ABSOLUTE MONOCYTE COUNT 0.8 /CUMM (0.10-0.60); BASOPHIL % 0.2 % (0.0-2.0); GRANULOCYTE % 66.2 % (42.2-75.2); MEAN CORPUSCULAR HGB 27.7 PG (27.0-31.0); MEAN CORPUSCULAR VOLUME 86.5 FL (80.0-94.0); MEAN PLATELET VOLUME 8.6 FL (7.4-10.4); PLATELET COUNT 212 /CUMM (130-400); RBC DISTRIBUTION WIDTH 14.6 % (11.5-14.5); RED BLOOD CELL CT 3.67 /CUMM (4.70-6.10); WHITE BLOOD CELL COUNT 12.1 /CUMM (4.8-10.8)
[2017-09-25 08:50] LABS: HEMATOCRIT 31.8 % (42-52)
--- NOTE | 2017-09-25 09:08 | PN- Housestaff ---
Michelle LYON,Alexis 09/25/17906: Subjective Follow-up For: Bacteremia, GPC positive blood culture Type II WA Tele-Events Since Last Visit: HR 90-100s Subjective: Patient was seen and examined at bedside. He is resting comfortably. He had no acute events overnight. He currently has no complaints and is eager to be discharged, states that he is feeling significantly improved from yesterday. He notes improvement in his lower extremity edema. He denies any palpitations, chest pain, shortness of breath, nausea, vomiting, fever, chills. Review of Systems Constitutional: Reports: see HPI. Objective Last 24 Hrs of Vital Signs/I&O Vital Signs Date Time Temp Pulse Resp B/P B/P Pulse O2 O2 Flow FiO2 Mean Ox Delivery Rate 09/25 205 106 09/25 1432 98.3 100 20 134/76 95 Room Air 09/25 1126 114 142/78 09/25 0829 116 134/80 09/25 0658 99.0 106 20 114/62 94 Room Air 09/24 2231 98.9 105 20 148/80 94 Room Air Intake & Output 09/25 1600 09/25 0800 09/25 0000 Intake Total 1140 730 480 Output Total 450 601 Balance 690 129 480 Intake, IV 300 250 Intake, Oral 840 480 480 Number 1 1 Bowel Movements Output, Stool 1 Output, Urine 450 600 Patient 394 lb Weight Weight Bed scale Measurement Method Physical Exam General Appearance: Alert, Oriented X3, Cooperative Skin Temp/Moisture Exam: Warm/Dry Sepsis Skin Exam (color): Normal for Ethnicity Cardiovascular: Regular Rate, Normal S1, Normal S2 Lungs: Clear to Auscultation, Normal Air Movement Abdomen: Normal Bowel Sounds, Soft, No Tenderness Neurological: Normal Speech, Normal Tone, Sensation Intact Extremities: 1+ distal LE edema bilaterally Sepsis Peripheral Pulse Location: Radial Sepsis Peripheral Pulse Exam: Normal Sepsis Cap Refill Exam: <2 Sec Current Medications: Current Medications Sig/Dasia Start time Last Medication Dose Route Stop Time Status Admin Acetaminophen 650 MG Q6P PRN 09/24 0630 AC PO Ampicillin Sodium/ 3,000 MG Q6 09/25 0600 AC 09/25 Sulbactam Sodium IV 1704 Sodium Chloride 100 ML Atorvastatin Calcium 40 MG 1700 09/24 1700 AC 09/25 PO 1704 Enoxaparin Sodium 40 MG DAILY 09/24 0900 AC 09/25 SC 0824 Gabapentin 300 MG TID 09/24 0900 AC 09/25 PO 205 Lisinopril 20 MG DAILY 09/24 0900 AC 09/25 PO 0829 Loperamide HCl 2 MG ONE ONE 09/25 0700 DC 09/25 PO 09/25 0701 0718 Magnesium Oxide 400 MG ONE ONE 09/25 0900 DC 09/25 PO 09/25 0901 0858 Magnesium Sulfate 1 GM Q2H 09/25 0930 DC 09/25 Dextrose/Water 100 ML IV 09/25 1329 1358 Melatonin 5 MG AT BEDTIME 09/25 2100 AC PO Metoprolol Tartrate 12.5 MG BID 09/25 1015 AC 09/25 PO 2055 Morphine Sulfate 2 MG Q4P PRN 09/250 AC IV Morphine Sulfate 2 MG Q4P PRN 09/25 2114 DC 09/25 IV 211 Nicotine 14 MG 2200 09/25 220 AC 09/25 TOP 205 Nicotine 14 MG DAILY 09/24 1605 DC 09/24 TOP 2256 Nystatin 5 ML 4 TIMES/DAY 09/24 2199 AC 09/25 PO 2057 Nystatin 1 JEROD TID 09/24 899 09/25 TOP 2121 Oxycodone/ 1 TAB Q6P PRN 09/24 0630 DC Acetaminophen PO Potassium Chloride 40 MEQ ONCE ONE 09/25 0900 DC 09/25 PO 09/25 0901 0857 Potassium Chloride 10 MEQ ONCE ONE 09/25 0900 DC 09/25 IV 09/25 0901 0907 Tramadol HCl 50 MG ONCE 09/25 1830 DC PO 09/25 2000 Vancomycin HCl 1,000 MG ONCE ONE 09/24 2345 DC 09/25 Sodium Chloride 250 ML IV 09/25 0044 0300 Last 24 Hrs of Lab/Jessee Results Last 24 Hrs of Labs/Mics: Laboratory Tests 09/25/17 1520: Anion Gap 11, Estimated GFR > 60, BUN/Creatinine Ratio 16.0, Magnesium 2.3 09/25/17 0930: Anion Gap 8, Estimated GFR > 60, BUN/Creatinine Ratio 16.0, Magnesium 2.0, Troponin I 0.34 *H 09/25/17 0620: Anion Gap 7, Estimated GFR > 60, BUN/Creatinine Ratio 20.0, Magnesium 1.4 L, CBC w Diff NO MAN DIFF REQ, RBC 3.67 L, MCV 86.5, MCH 27.7, MCHC 32.0 L, RDW 14.6 H, MPV 8.6, Gran % 66.2, Lymphocytes % 25.8, Monocytes % 6.8, Eosinophils % 1.0, Basophils % 0.2, Absolute Granulocytes 8.0 H, Absolute Lymphocytes 3.1, Absolute Monocytes 0.8 H, Absolute Eosinophils 0.1, Absolute Basophils 0 Microbiology 09/26 655 STOOL: Clostridium difficile Toxin A & B - COLB 09/26 655 STOOL: Stool Culture - COLB Assessment/Plan Assessment: Patient is a 47 YO M with PMH for HTN, HLD, TIFFANIE on CPAP, hypogonadism, Sciatica (recently diagnosed) presented to [place] with waxing and wanning episodes of shortness of breath for the past 2 days associated with fevers, chills for the past 4 days. He had been recently immobile due to severe right groin pain with erythema. Also had increased lower extremity swelling in the lower extremities for the past week. He has been on steroids recently for several times during his ER visits for pain. VS at admission are significant for Tmax of 103, HR 135, BP 135/65mmHg, 98% on RA. Physical exam is significant for morbid obesity, wheezing on lung exam, extensive fungal dissemination in the bilateral grion/axillary areas, 3+ pitting edema on bilateral lower extremities. Labs did show white count of 10.1 with left shift. H&H 11/37, chem panel unremarkable, troponin of 0.14, ProBNP 2150, glucose 110, lactic acid 1.2. UA pending. CXR unremarkable. CTA ruled out PE, did show bilateral atelectasis. 1. GPC bacteremia Porbable skin/lung origin GPC Bacteremia, sensitivities to follow * A single dose of ceftriaxone and azithro given in ER. 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 It recently got worse with probably steroid medications. No good relief from previous local treatments. On exam extensive skin involvement. * Nystatin powder locally * follow up blood cultures 3. Elevated troponin Patient had HTN, smoking history. Mother with CHD (L to R shunt). He had stress test 4 yrs ago which was normal. Patient was tachycardic with high grade fever which would have lead to elevated troponin due to further worsening of CAD. Likely type II WA secondary to infection * Troponin peaked at 0.51 * Cardio consult * ECHO * elevated proBNP with edema - possible CHF * Patient will need close outpatient follow-up with cardiology 4. Hypokalemia, hypomagnesemia * Repleted, when rechecked had normalized * Repeat BMP and magnesium level in a.m. 5. HTN Patient was on lisinopril 20mg daily. we will continue 6. HLD Patient was on atorvastatin. we will continue for now. 7. TIFFANIE on CPAP 8. Low testosteron levels Hold for now testosterone 9. Sciatica Patient had multiple ER visits in the past 2 months for sciatica, several times got pain medications and steroids. Recently started on gabapentine 300mg TID. * Continue gabapentine 300mg TID * Patient is requested to leave AMA secondary to discomfort and not liking the hospital environment, he was convinced to stay with better pain control. He also states that he would like to be present for his upcoming outpatient pain management appointment Diet: Regular diet DVT prophylaxis: Carlosx Alps CODE STATUS: Full code Problem List: 1. Elevated troponin 2. Bacteremia Pain Ratin Pain Location: back Pain Goal: Pain 4 or less Pain Plan: pain pathway Tomorrow's Labs & Rationales: cbc, williep Mar LYON,Barber 09/25/17 1535: Attending MD Review Statement Attending Statement Attending MD Statement: examined this patient, discuss w/resident/PA/PROM BURN OFF OPERATOR, agreed w/resident/PA/PROM BURN OFF OPERATOR, reviewed EMR data (avail), discussed with nursing Attending Assessment/Plan: Patient with TIFFANIE and BMI 56.7 morbid obesity comes with fever and tachycardia with mild elevation of cardiac enzymes. Patient being admitted to telemtry services for possible type 2 WA r/o ACS. No acute events overnight. Patient denies any specific complaints of chest pain , shortness of breath, palpitations. Sitting in bed comfortably. On examination vital signs- pressure 134/76, heart rate of 100, saturating 95% on room air, afebrile, respirations 20/m. 1. Type II WA - troponins trending down, in the setting of fever and tachycardia. Obtain echocardiogram. Will need outpatient evaluation in the form of stress testing. Obtained cardiology recommendations. Continue with aspirin and statin and beta lianna. 2. Gram positive septicemia - continue with Unasyn. Micro-showing gram- positive cocci in chains. Received 1 dose of vancomycin last night. Follow up on final cultures. Possibly secondary from superinfection of intertrigo fungal infection 3. Hypomagnesemia - replete and follow up 4. Affect is sleep apnea on CPAP 5. Sciatica of lower extremities - apparently patient has a follow-up scheduled on Wednesday for injections from pain management. Patient wants to get discharged definitely tomorrow, if not he wishes to leave A, the reasons cited as he does not want to miss the pain management appointment
--- NOTE | 2017-09-25 12:29 | PN- Cardiology ---
Subjective Subjective: The patient is awake, alert, feels improved from a respiratory standpoint The events of the last 24 hours as well as telemetry were reviewed. Review of Systems: The review of systems is negative for chest pains, palpitations nor lightheadedness. The remainder of the 14 point review of systems is noncontributory with the exception of above. Objective Vital Signs and I&Os Vital Signs Date Time Temp Pulse Resp B/P B/P Pulse O2 O2 Flow FiO2 Mean Ox Delivery Rate 09/25 1126 114 142/78 09/25 0829 116 134/80 09/25 0658 99.0 106 20 114/62 94 Room Air 09/24 2231 98.9 105 20 148/80 94 Room Air 09/24 1600 94 Room Air 09/24 1447 97.6 105 20 142/94 94 Room Air Intake & Output 09/25 1600 09/25 0800 09/25 0000 09/24 1600 09/24 0800 09/24 0000 Intake Total 730 480 660 0 Output Total 601 1375 Balance 129 480 -715 0 Intake, IV 250 Intake, Oral 480 480 660 0 Number 1 Bowel Movements Output, Stool 1 Output, Urine 600 1375 Patient 394 lb 395 lb Weight Weight Bed scale Bed scale Measurement Method Physical Exam: General: Nontoxic, no apparent distress. HEENT: Sclera and conjunctiva within normal limits, without xanthelasmas. Neck: Carotids 2+ without bruits. Respiratory: Scattered rhonchi, air movement is good, without accessory respiratory muscle use. Heart: Regular rate and rhythm, without murmurs, without JVD. Abdomen: Soft, nontender, no masses, normoactive bowel sounds. Extremities: Without clubbing, cyanosis, Neuro: Nonfocal exam, strength, 5 out of 5 Skin: Within normal limits without lesions. Psych: Mood and affect: Normal Current Medications: Current Medications Sig/Dasia Start time Last Medication Dose Route Stop Time Status Admin Acetaminophen 650 MG Q6P PRN 09/24 0630 AC PO Ampicillin Sodium/ 3,000 MG Q6 09/25 0600 AC 09/25 Sulbactam Sodium IV 0617 Sodium Chloride 100 ML Atorvastatin Calcium 40 MG 1700 09/24 1700 AC 09/24 PO 1820 Enoxaparin Sodium 40 MG DAILY 09/24 09 AC 09/25 SC 0824 Gabapentin 300 MG TID 09/24 899 AC 09/25 PO 0746 Lisinopril 20 MG DAILY 09/24 09 AC 09/25 PO 0829 Loperamide HCl 2 MG ONE ONE 09/25 0700 DC 09/25 PO 09/25 0701 0718 Magnesium Oxide 400 MG ONE ONE 09/25 0900 DC 09/25 PO 09/25 0901 0858 Magnesium Sulfate 1 GM Q2H 09/25 0930 AC 09/25 Dextrose/Water 100 ML IV 09/25 1329 1126 Metoprolol Tartrate 12.5 MG BID 09/25 1015 AC 09/25 PO 1126 Nicotine 14 MG 09/25 AC TOP Nicotine 14 MG DAILY 09/24 1605 DC 09/24 TOP 2256 Nystatin 5 ML 4 TIMES/DAY 09/24 220 AC 09/25 PO 0824 Nystatin 1 JEROD TID 09/24 899 09/25 TOP 0831 Oxycodone/ 1 TAB Q6P PRN 09/24 0630 AC Acetaminophen PO Patient Medication 1 ED ONE ONE 09/24 1345 DC 09/24 Teaching ED 09/24 1346 1824 Potassium Chloride 40 MEQ ONCE ONE 09/25 09 DC 09/25 PO 09/25 0901 0857 Potassium Chloride 10 MEQ ONCE ONE 09/25 0900 DC 09/25 IV 09/25 0901 0907 Vancomycin HCl 1,000 MG ONCE ONE 09/24 2345 SC 09/25 Sodium Chloride 250 ML IV 09/25 0044 0300 Results Last 48 Hrs of Labs/Mics: Laboratory Tests 09/25/17 0930: Anion Gap 8, Estimated GFR > 60, BUN/Creatinine Ratio 16.0, Magnesium Pending, Troponin I 0.34 *H 09/25/17 0620: Anion Gap 7, Estimated GFR > 60, BUN/Creatinine Ratio 20.0, Magnesium 1.4 L, CBC w Diff NO MAN DIFF REQ, RBC 3.67 L, MCV 86.5, MCH 27.7, MCHC 32.0 L, RDW 14.6 H, MPV 8.6, Gran % 66.2, Lymphocytes % 25.8, Monocytes % 6.8, Eosinophils % 1.0, Basophils % 0.2, Absolute Granulocytes 8.0 H, Absolute Lymphocytes 3.1, Absolute Monocytes 0.8 H, Absolute Eosinophils 0.1, Absolute Basophils 0 09/24/17 1500: Troponin I 0.38 *H 09/24/17 0930: Troponin I 0.51 *H 09/24/17 0854: Urine Color YEL, Urine Clarity CLEAR, Urine pH 6.5, Ur Specific [place] 1.010, Urine Protein NEG, Urine Ketones NEG, Urine Nitrite NEG, Urine Bilirubin NEG, Urine Urobilinogen 0.2, Ur Leukocyte Esterase NEG, Ur Microscopic EXAM NOT REQUIRED, Urine Hemoglobin NEG, Urine Glucose NEG 09/24/17 0330: Lactic Acid 1.2 09/24/17 0330: Anion Gap 10, Estimated GFR > 60, BUN/Creatinine Ratio 15.0, Glucose 110 H, Hemoglobin A1c 6.2 H, Calcium 8.6, Magnesium 1.8, Total Bilirubin 0.5, AST 20, ALT 27, Alkaline Phosphatase 118, Troponin I 0.14 *H, Bjl-[id number]-Unrvraknnox Pept 2150 H, Total Protein 6.2 L, Albumin 3.2 L, Globulin 3.0, Albumin/Globulin Ratio 1.1, CBC w Diff NO MAN DIFF REQ, RBC 4.35 L, MCV 85.7, MCH 27.3, MCHC 31.9 L, RDW 14.6 H, MPV 7.8, Gran % 77.8 H, Lymphocytes % 14.2 L, Monocytes % 6.6, Eosinophils % 0.9, Basophils % 0.5, Absolute Granulocytes 8.5 H, Absolute Lymphocytes 1.6, Absolute Monocytes 0.7 H, Absolute Eosinophils 0.1, Absolute Basophils 0.1 Microbiology 09/24 1025 NASOPHARYN: Influenza Virus A & B Rapid Smear - COMP Assessment/Plan Assessment/Plan 1. Increasing dyspnea, likely related to underlying pulmonary issues, obesity, sleep apnea, etc. There is no evidence of overt heart failure. He does have lower extremity edema which is likely related to sleep apnea, pulmonary hypertension, venous insufficiency, etc. His echocardiogram shows significant left ventricular hypertrophy with normal left ventricular ejection fraction. Accurate assessment of wall motion was not possible due to the quality of the images obtained. The right ventricular systolic pressure could not be estimated on the echocardiogram. 2. Elevated troponin consistent with type II [place] 3. Obstructive sleep apnea on BiPAP 4. Obesity 5. History of hypertension 6. Significant left ventricular hypertrophy 7. Abnormal ECG-likely related to hypertension and LVH. The possibility of underlying ischemic disease cannot be excluded. 8. Elevated proBNP Acute non-ST elevation myocardial infarction: The patient presents with elevated troponin isoenzymes in the setting of tachycardia as well as hypoxia. He has a preserved LV systolic function by echocardiogram. We will continue his current medication regimen including aspirin, a beta-lianna and statin. Further consideration for determining his underlying burden of ischemia will be done as an outpatient (stress testing versus stress echo). Dyspnea: Likely secondary to a primary pulmonary issue; however, with possible superimposed secondary acute congestive heart failure with preserved LV systolic function. He is improved with improved pulmonary treatment. Continue telemetry? Yes
[2017-09-25 14:32] VITALS: BP 134/76
[2017-09-26] VITALS: BP 122/60
[2017-09-26 06:30] VITALS: BP 138/82
--- NOTE | 2017-09-26 08:19 | PN- Housestaff ---
See Addendum Subjective Follow-up For: Bacteremia, GPC positive blood culture Type II MS Tele-Events Since Last Visit: NSR/ST with HR 91-120. No overnight events. Subjective: Patient was seen and examined this morning. he has no complaints. Wishes to be discharged even if it is AMA. Spiked a fever of 100 F overnight. Review of Systems Constitutional: Reports: no symptoms. Objective Last 24 Hrs of Vital Signs/I&O Vital Signs Date Time Temp Pulse Resp B/P B/P Pulse O2 O2 Flow FiO2 Mean Ox Delivery Rate 09/26 0847 100.0 09/26 0837 93 138/82 09/26 0837 93 138/82 09/26 0630 101.0 93 20 138/82 94 09/26 0000 99.5 93 20 122/60 93 09/25 2056 106 09/25 1432 98.3 100 20 134/76 95 Room Air 09/25 1126 114 142/78 Intake & Output 09/26 1600 09/26 0800 09/26 0000 Intake Total 440 640 Output Total 450 725 Balance -10 -85 Intake, IV 200 Intake, Oral 240 640 Output, Urine 450 725 Physical Exam General Appearance: Alert, Oriented X3, Cooperative, No Acute Distress Skin: No Rashes, No Breakdown Skin Temp/Moisture Exam: Warm/Dry Sepsis Skin Exam (color): Normal for Ethnicity HEENT: Atraumatic Cardiovascular: Normal S1, Normal S2, No Murmurs Lungs: Normal Air Movement Abdomen: Soft, No Tenderness Neurological: Normal Speech Extremities: bilateral lower extremity 1+ edema Assessment/Plan Assessment: 47 YO M with PMH for HTN, HLD, TIFFANIE on CPAP, hypogonadism, Sciatica (recently diagnosed) presented to [facility] with waxing and wanning episodes of shortness of breath for the past 2 days associated with fevers, chills for the past 4 days. Assessment: 1. GPC Bacteremia 2. Elevated Troponin 3. Intertrigenous fungal infection 4. History of Hypertension 5. History of TIFFANIE on CPAP 6. History of Sciatica Plan: * Patient wishes to leave AMA for his epidural injections at [facility]. He understands he is bacteremic and tachycardic. Understands the risks. He states he willback to the ED to be readmitted once he receives his treatment. * Advised to start Augmentin 875mg BID once he leaves the hospital. * He is bacteremic with GPC in chains in blood. * His troponin peaked and trended down on Wednesday. * Continue aspirin, metoprolol and statin in the meantime. * His echo showed moderate to severe left ventricular hypertrophy, normal LVEF, wall motion abnormalities could not be assessed. * He will need outpatient follow up with cardiology. * Continue topical nystatin for fungal infection. * Diet: Regular (refused heart healthy) * DVT Prophylaxis: SC Lovenox * Code: Full Code Problem List: 1. Elevated troponin Pain Ratin Pain Location: none Pain Goal: Remain pain free Pain Plan: none Tomorrow's Labs & Rationales: none
[2017-09-26 08:37] VITALS: BP 138/82
[2017-09-26 08:41] LABS: ABSOLUTE BASOPHIL COUNT 0.1 /CUMM (0.0-0.2); ABSOLUTE EOSINOPHIL COUNT 0.2 /CUMM (0.0-0.7); ABSOLUTE GRANULOCYTE CT 8.1 /CUMM (1.4-6.5); ABSOLUTE LYMPH COUNT 2.9 /CUMM (1.2-3.4); BASOPHIL % 0.4 % (0.0-2.0); EOSINOPHIL % 1.8 % (0-5); GRANULOCYTE % 66.5 % (42.2-75.2); HEMATOCRIT 33.7 % (42-52); MEAN CORPUSCULAR HGB 27.4 PG (27.0-31.0); MEAN CORPUSCULAR HGB CONC 31.9 G/DL (33.0-37.0); MEAN CORPUSCULAR VOLUME 85.9 FL (80.0-94.0); MEAN PLATELET VOLUME 8.3 FL (7.4-10.4); PLATELET COUNT 234 /CUMM (130-400); RBC DISTRIBUTION WIDTH 14.8 % (11.5-14.5); RED BLOOD CELL CT 3.93 /CUMM (4.70-6.10); WHITE BLOOD CELL COUNT 12.2 /CUMM (4.8-10.8)
[2017-09-26] MEDS ORDERED: AUGMENTIN 875-1 EACH PO ×2 (09:23→09:34)
[2017-09-26] MEDS ORDERED: METOPROLOL TART25 M1 PO ×2 (09:25→09:34)
[2017-09-26] MEDS ORDERED: ASPIRIN EC81 M1 PO (09:34)
--- NOTE | 2017-09-26 11:22 | Discharge Summary ---
Visit Information Visit Dates Admission Date: 09/24/17 Discharge Date: 09/26/17 Hospital Course Course Attending Physician: Rox Flores MD Primary Care Physician: Cody Concepcion MD Hospital Course: Mr Garcia is a 47 yo M with PMH for HTN, HLD, TIFFANIE on CPAP, hypogonadism, sciatica (recently diagnosed) who presented to [facility] with waxing and wanning episodes of shortness of breath for the past 2 days associated with fevers, chills for the past 4 days. He was admitted to telemetry after his EKG showed sinus tachycardia and cardiac enzymes showed a modest elevation. Below is a list of conditions he was seen and treated for GPC Bacteremia On admisison patient was found to febrile to 100.6. Blood and urine cultures were obtained and the patient was started on IV Ceftriaxone. His source of bacteremia is unclear at this time. The patient does state that he has had frequent skin boils. He was continued on antibiotics. Unfortunately, the patient signed off AMA as he stated that he had an appointment at the spine center at [facility] for an epidural injection for his sciatica. Recommendations for remaining an inpatient were discussed. He showed good understanding associated with risks of leaving AMA. He was given a prescription of Augmentin and advised to continue on it and return to the ED should his condition worsens. Type II [place] On admission the patient was found to have elevated troponins in the setting of tachycardia as well as hypoxia. His echocardiogram showed preserved LV function with No obvious regional wall motion abnormalities. He was started on aspirin and a beta lianna. He was advised to follow up with his vegetable vendor on discharge for further evaluation with stress testing. History of Intertrigenous fungal infection Patient has a long standing fungal infection which he stated recently got worse. He was treated with topical nystatin powder. Allergies: Coded Allergies: No Known Allergies (08/12/17) Significant Procedures: SERVICE DATE: 09/24/17-09 EXAM TYPE: CARD - ECHO (COMPLETE) W/CONTRAST FINDINGS Left Ventricle Normal size left ventricle. No obvious regional wall motion abnormalities. Left ventricular wall thickness severely increased. Normal left ventricular ejection fraction estimated at 55-60%. Right Ventricle Right ventricle not well visualized. Right Atrium Right atrium not well visualized, grossly normal. Left Atrium Left atrial dilatation. Mitral Valve Mild mitral stenosis. Mitral valve thickened. Aortic Valve Trileaflet aortic valve. Diffuse thickening (sclerosis) of the aortic valve cusps without reduced excursion. No aortic stenosis. No aortic regurgitation. Tricuspid Valve Tricuspid valve not well visualized. Pulmonic Valve Pulmonic valve not well visualized. Pericardium No pericardial effusion. Great Vessels Aortic root and proximal ascending aorta not well visualized, grossly normal. CONCLUSIONS 1. This was a technically difficult and limited study due to the patient's body habitus and clinical status. 2. Aortic sclerosis is present with no valvular stenosis or insufficiency. 3. Mitral leaflet thickening is present with Doppler evidence of mild mitral stenosis (MVA 1.6 cm2) and mild mitral insufficiency. with left atrial enlargement 4. The left ventricular chamber size and systolic function appear normal. Moderate to severe left ventricular hypertrophy is present. Accurate wall motion assessment was not possible. 5. The right heart structures were not optimally assessed. The RV systolic pressure could not be assessed on this examination. 6. Additional images were obtained following the administration of IV contrast SERVICE DATE: 09/24/17 EXAM TYPE: CAT - CTA CHEST-PULMONARY EMBOLISM FINDINGS: QUALITY OF STUDY/CONTRAST BOLUS: Satisfactory PULMONARY ARTERIES: No central or segmental pulmonary emboli. THORACIC AORTA: No aneurysm or dissection. LUNG: The central airways are patent. No consolidation. No suspicious pulmonary nodules. Minimal dependent atelectasis bilaterally. PLEURA: No pleural effusion or pneumothorax. MEDIASTINUM: Normal heart size. No pericardial effusion. No hilar or mediastinal lymphadenopathy. No evidence of septal bowing or right heart strain. CHEST WALL/AXILLA: No axillary or internal mammary lymphadenopathy. OSSEOUS STRUCTURES: No acute or suspicious osseous abnormality. Mild degenerative changes of the spine. UPPER ABDOMEN: Unremarkable. No reflux of contrast into the hepatic veins to suggest elevated right heart pressures. IMPRESSION: No pulmonary embolism or other acute intrathoracic abnormality. VTE: negative SERVICE DATE: 09/24/17 EXAM TYPE: RAD - XRY-CHEST XRAY, TWO VIEWS FINDINGS: The lungs are well expanded. There is no focal consolidation, edema, or effusion. No pneumothorax. The cardiomediastinal silhouette is within normal limits. No acute osseous abnormality. IMPRESSION: No acute pulmonary findings. Disposition Summary Disposition Principal Diagnosis: GPC Bacteremia Type II [place] Additional Diagnosis: Intertrigenous fungal infection History of Hypertension History of TIFFANIE on CPAP History of Sciatica Discharge Disposition: left against medical adv Discharge Instructions General Discharge Information Code Status: Full Code Patient's Diet: Heart Healthy Patient's Activity: As tolerated Follow-Up Instructions/Appts: Please follow up with your PCP and vegetable vendor within one week of discharge. Please return to the ED for any worsening symptoms or concerns Medications at Discharge Discharge Medications: Continue taking these medications: Oxycodone HCl/Acetaminophen (Percocet 5-325 MG Tablet) 5 MG-325 MG TABLET 1-2 Tablet ORAL EVERY SIX HOURS NEEDED as needed for PAIN Qty = 20 Comments: NOT GIVEN Lisinopril (Lisinopril) 20 MG TABLET 1 Tablet ORAL DAILY Qty = 30 Comments: Last Taken: 09/26/17 Time: 8:30 AM Testosterone Cypionate (Testosterone Cypionate) 200 MG/ML VIAL 1 Milliliters INTRAMUSC EVERY 2 WEEKS Qty = 10 Comments: NOT GIVEN Atorvastatin Calcium (Atorvastatin Calcium) 40 MG TABLET 1 Tablet ORAL DAILY Qty = 30 Comments: Last Taken: 09/25/17 Time: 5:00 PM Oxycodone HCl (Oxycodone HCl) 10 MG TABLET 1 Tablet ORAL EVERY SIX HOURS NEEDED Qty = 15 Comments: Last Taken: 09/26/17 Time: 6:00 AM Prednisone (Prednisone) 50 MG TABLET 1 Tablet ORAL DAILY Qty = 4 Comments: NOT GIVEN Gabapentin (Neurontin) 300 MG CAPSULE 1 Capsule ORAL THREE TIMES DAILY Comments: Last Taken: 09/26/17 Time: 8:30 AM Start taking the following new medications: Amoxicillin/Potassium Clav (Augmentin 875-125 Tablet) 875 MG-125 MG TABLET 1 Tablet ORAL TWICE DAILY Qty = 14 No Refills Instructions: . Comments: UNASYN GIVEN IN HOSPITAL Metoprolol Tartrate (Metoprolol Tartrate) 25 MG TABLET 0.5 Tablet ORAL TWICE DAILY Qty = 30 No Refills Instructions: . Comments: Last Taken: 09/26/17 Time: 8:30 AM Aspirin (Ecotrin*) 81 MG TABLET.DR 1 Tablet ORAL DAILY Qty = 30 No Refills Instructions: . Comments: Last Taken: 09/26/17 Time: 8:30 AM Copies To: Radha LYON,Alexis Oliveira Attending MD Review Statement Documenting Attending: Pina Beaulieu MD Other Findings: Patient left against medical advice on 09/26/17 and seen by Barber Manuel MD.
--- NOTE | 2017-09-26 11:23 | PN- Cardiology ---
Subjective Subjective: The patient is awake, alert, states feeling mildly improved The events of the last 24 hours as well as telemetry were reviewed. Review of Systems: The review of systems is negative for chest pains, palpitations nor lightheadedness. The remainder of the 14 point review of systems is noncontributory with the exception of above. Objective Vital Signs and I&Os Vital Signs Date Time Temp Pulse Resp B/P B/P Pulse O2 O2 Flow FiO2 Mean Ox Delivery Rate 09/26 0847 100.0 09/26 0837 93 138/82 09/26 0837 93 138/82 09/26 0630 101.0 93 20 138/82 94 09/26 0000 99.5 93 20 122/60 93 09/25 2056 106 09/25 1432 98.3 100 20 134/76 95 Room Air 09/25 1126 114 142/78 Intake & Output 09/26 1600 09/26 0800 09/26 0000 09/25 1600 09/25 0800 09/25 0000 Intake Total 499 652 8846 730 480 Output Total 450 725 450 601 Balance - 690 129 480 Intake, IV 200 300 250 Intake, Oral 240 640 840 480 480 Number 1 1 Bowel Movements Output, Stool 1 Output, Urine 450 725 450 600 Patient 394 lb Weight Weight Bed scale Measurement Method Physical Exam: General: Nontoxic, no apparent distress. HEENT: Sclera and conjunctiva within normal limits, without xanthelasmas. Neck: Carotids 2+ without bruits. Respiratory: Clear to auscultation, air movement is good, without accessory respiratory muscle use. Heart: Regular rate and rhythm, without murmurs, without JVD. Abdomen: Soft, nontender, no masses, normoactive bowel sounds. Extremities: Without clubbing, cyanosis, without edema. Neuro: Nonfocal exam, strength, 5 out of 5 Skin: Within normal limits without lesions. Psych: Mood and affect: Normal Current Medications: Current Medications Sig/Dasia Start time Last Medication Dose Route Stop Time Status Admin Acetaminophen 650 MG Q6P PRN 09/24 0630 DCD 09/26 PO 0616 Ampicillin Sodium/ 3,000 MG Q6 09/25 0600 DCD 09/26 Sulbactam Sodium IV 0603 Sodium Chloride 100 ML Atorvastatin Calcium 40 MG 1700 09/24 1700 DCD 09/25 PO 1704 Enoxaparin Sodium 40 MG DAILY 09/24 09 DCD 09/26 SC 0836 Gabapentin 300 MG TID 09/24 09 DCD 09/26 PO 0837 Lisinopril 20 MG DAILY 09/24 09 DCD 09/26 PO 0837 Magnesium Sulfate 1 GM Q2H 09/25 0930 DC 09/25 Dextrose/Water 100 ML IV 09/25 1329 1358 Melatonin 5 MG AT BEDTIME 09/25 2100 WAD 09/26 PO 0021 Metoprolol Tartrate 12.5 MG BID 09/25 1015 DCD 09/26 PO 0837 Morphine Sulfate 2 MG Q6-PRN PRN 09/25 2215 WAD 09/26 IV 0247 Morphine Sulfate 2 MG Q4P PRN 09/25 2130 DC IV Morphine Sulfate 2 MG Q4P PRN 09/25 2115 DC 09/25 IV 2116 Nicotine 14 MG 2200 09/25 2200 WAD 09/25 TOP 2059 Nystatin 5 ML 4 TIMES/DAY 09/24 2200 WAD 09/26 PO 0836 Nystatin 1 JEROD TID 09/24 0900 WAD 09/26 TOP 0837 Oxycodone HCl 10 MG Q6 PRN 09/26 0100 DCD 09/26 PO 0603 Oxycodone HCl 10 MG Q6 PRN 09/25 2345 DC 09/26 PO 0020 Oxycodone/ 1 TAB Q6P PRN 09/24 0630 DC Acetaminophen PO Tramadol HCl 50 MG ONCE 09/25 1830 DC PO 09/25 2000 Results Last 48 Hrs of Labs/Mics: Laboratory Tests 09/26/17 0644: Anion Gap 8, Estimated GFR > 60, BUN/Creatinine Ratio 15.0, Magnesium 2.1, CBC w Diff NO MAN DIFF REQ, RBC 3.93 L, MCV 85.9, MCH 27.4, MCHC 31.9 L, RDW 14.8 H , MPV 8.3, Gran % 66.5, Lymphocytes % 23.4, Monocytes % 7.9, Eosinophils % 1.8, Basophils % 0.4, Absolute Granulocytes 8.1 H, Absolute Lymphocytes 2.9, Absolute Monocytes 1.0 H, Absolute Eosinophils 0.2, Absolute Basophils 0.1 09/25/17 1520: Anion Gap 11, Estimated GFR > 60, BUN/Creatinine Ratio 16.0, Magnesium 2.3 09/25/17 0930: Anion Gap 8, Estimated GFR > 60, BUN/Creatinine Ratio 16.0, Magnesium 2.0, Troponin I 0.34 *H 09/25/17 0620: Anion Gap 7, Estimated GFR > 60, BUN/Creatinine Ratio 20.0, Magnesium 1.4 L, CBC w Diff NO MAN DIFF REQ, RBC 3.67 L, MCV 86.5, MCH 27.7, MCHC 32.0 L, RDW 14.6 H, MPV 8.6, Gran % 66.2, Lymphocytes % 25.8, Monocytes % 6.8, Eosinophils % 1.0, Basophils % 0.2, Absolute Granulocytes 8.0 H, Absolute Lymphocytes 3.1, Absolute Monocytes 0.8 H, Absolute Eosinophils 0.1, Absolute Basophils 0 09/24/17 1500: Troponin I 0.38 *H Assessment/Plan Assessment/Plan 1. Increasing dyspnea, likely related to underlying pulmonary issues, obesity, sleep apnea, etc. There is no evidence of overt heart failure. He does have lower extremity edema which is likely related to sleep apnea, pulmonary hypertension, venous insufficiency, etc. His echocardiogram shows significant left ventricular hypertrophy with normal left ventricular ejection fraction. Accurate assessment of wall motion was not possible due to the quality of the images obtained. The right ventricular systolic pressure could not be estimated on the echocardiogram. 2. Elevated troponin consistent with type II [place] 3. Obstructive sleep apnea on BiPAP 4. Obesity 5. History of hypertension 6. Significant left ventricular hypertrophy 7. Abnormal ECG-likely related to hypertension and LVH. The possibility of underlying ischemic disease cannot be excluded. 8. Elevated proBNP Acute non-ST elevation myocardial infarction: The patient presents with elevated troponin isoenzymes in the setting of tachycardia as well as hypoxia. He has a preserved LV systolic function by echocardiogram. We will continue his current medication regimen including aspirin, a beta-lianna and statin. Further consideration for determining his underlying burden of ischemia will be done as an outpatient (stress testing versus stress echo). Dyspnea: Likely secondary to a primary pulmonary issue; however, with possible superimposed secondary acute congestive heart failure with preserved LV systolic function. He is improved with improved pulmonary treatment. Fevers, leukocytosis: The patient had to blood cultures positive for gram-positive cocci from September 24. He however wants to be discharged to home today for follow-up with his pain management physician. There is no clear evidence for underlying endocarditis. Recommendations for remaining an inpatient were discussed. Continue telemetry? No
== END 2017-09-26 10:35 | disposition left against medical advice (07) | DRG 724 ==
LOC: ERH 02:50 → 1NO 05:24 → ERHI 05:24 → 1NO 05:24 → ENRESERV 06:01 → 1NO 06:58 → ENPENDDIS 09-26 09:35 → ENTRNSPT 09-26 10:13 → CMPTRNSPT 09-26 10:31 → 1NO 09-26 10:35
PROVIDERS: Dermatology; Emergency Medicine; Internal Medicine
PROC: 5A09357 Assistance with Respiratory Ventilation, Less than 24 Consecutive Hours, Continuous Positive Airway Pressure (ICD-10-PCS; principal; 2017-09-24)
DX: R78.81 Bacteremia (principal); I10 Essential (primary) hypertension; I21.A1 Myocardial infarction type 2; G47.33 Obstructive sleep apnea (adult) (pediatric); E83.42 Hypomagnesemia; R09.02 Hypoxemia; I27.20 Pulmonary hypertension, unspecified; E66.01 Morbid (severe) obesity due to excess calories; Z68.43 Body mass index [BMI] 50.0-59.9, adult; B35.8 Other dermatophytoses; R00.0 Tachycardia, unspecified; M54.30 Sciatica, unspecified side; E87.6 Hypokalemia; E78.5 Hyperlipidemia, unspecified; N20.0 Calculus of kidney; F17.200 Nicotine dependence, unspecified, uncomplicated
CPT/HCPCS: 1NSP; 36415; 36592; 71046; 81003; 82436; 87040; 87045; 87070; 87071; 87086; 87804; 87804-59; 93005; 93010; 96374; C8929; J0696; J1650; J3370; J7040; Q9957

== ENCOUNTER 2017-11-12 18:34 | Emergency (ER) | payer OTHER ==
[~2017-11-12] VITALS: Ht 177.8 cm; Wt 186.0 kg
[~2017-11-12 18:34] MED LIST changes: +ASPIRIN EC81 M1 PO; +AUGMENTIN 875-1 EACH PO; +METOPROLOL TART25 M1 PO; +NEURONTIN300 M1 PO
--- NOTE | 2017-11-12 19:14 | ED CARDIAC/CP/PALPITATIONS ---
History of Present Illness General Chief Complaint: Chest Pain Stated Complaint: BIBA WITH CHEST PAIN Source: patient Exam Limitations: no limitations Vital Signs & Intake/Output Vital Signs & Intake/Output Vital Signs Date Time Temp Pulse Resp B/P B/P Pulse O2 O2 Flow FiO2 Mean Ox Delivery Rate 11/12 2110 98.3 94 18 152/68 99 Room Air 11/12 1856 98.7 96 20 154/70 100 Room Air ED Intake and Output 11/13 0000 11/12 1200 Intake Total Output Total Balance Patient 410 lb Weight Weight Reported by Patient Measurement Method Allergies Coded Allergies: No Known Allergies (11/12/17) Reconcile Medications 0.9 % Sodium Chloride (Sodium Chloride) 0.9 % SYRINGE 3 ML IV PUSH PRN LINE FLUSH (Reported) Acetaminophen (Athenol) 325 MG TABLET 2 TAB PO Q6H PRN PAIN (Reported) Amlodipine Besylate 2.5 MG TABLET 1 TAB PO DAILY BP (Reported) Aspirin (Ecotrin*) 325 MG TABLET.DR 1 TAB PO DAILY HEART/BLOOD (Reported) Atorvastatin Calcium 40 MG TABLET 1 TAB PO DAILY HIGH CHOLESTEROL (Reported) Doxycycline Hyclate 100 MG CAPSULE 1 CAP PO Q12H ABX (Reported) Furosemide 20 MG TABLET 1 TAB PO DAILY DIURETIC (Reported) Gabapentin 600 MG TABLET 1 TAB PO TID NERVE PAIN (Reported) Metoprolol Tartrate 25 MG TABLET 0.5 TAB PO BID [facility] . Naproxen Sodium (Aleve) 220 MG CAPSULE 2 CAP PO DAILY PAIN/INFLAMMATION ( Reported) Nystatin (Nystop) 100,000 UNIT/GRAM POWDER 1 JEROD TOP BID SKIN (Reported) Oxycodone HCl 10 MG TABLET 1 TAB PO Q6P severe pain Oxymorphone HCl (Opana) 10 MG TABLET 1 TAB PO TID PRN pain ten... [id number] Pantoprazole Sodium 40 MG TABLET.DR 1 TAB PO Q12H GI (Reported) Potassium Chloride 20 MEQ TAB.ER.PRT 1 TAB PO DAILY SUPPLEMENT (Reported) Rifampin 300 MG CAPSULE 1 CAP PO Q8H ABX (Reported) Testosterone Cypionate 200 MG/ML VIAL 1 ML IM Q2W LOW TESTOSTERONE (Reported) Vancomycin/0.9 % Sod Chloride (Vancomycin-0.9% NaCl 2 G/500) 2 GRAM/500 ML PLAST..BAG 2 G IV DAILY ABX (Reported) Triage Nurses Notes Reviewed? 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 He presents with several days of mid sternal chest wall pain in the distribution of his sternal surgical wound. He notes lower extremity swelling, scrotal swelling, without pain, worsening dyspnea, fever, chills, back pain. He is otherwise well and has close follow up with his physicians. Of note, he is presently receiving vancomycin and rifampin for his infectious endocarditis. Past History Travel History Traveled to [place] past [place] day No Medical History Any Pertinent Medical History? see below for history Neurological: NONE EENT: NONE Cardiovascular: hypertension, hyperlipidemia Respiratory: NONE Gastrointestinal: NONE Hepatic: NONE Renal: NONE Musculoskeletal: sciatica, DISC PROBLEM Psychiatric: NONE Endocrine: LOW TESTOSTERONE Blood Disorders: NONE Cancer(s): NONE COACH OPERATOR/Reproductive: NONE History of MRSA: No History of VRE: No History of CDIFF: No Surgical History Surgical History: non-contributory Psychosocial History Who do you live with Mother Services at Home None What is your primary language P[place]in[place] Tobacco Use: Current Daily Use Daily Tobacco Use Amount/Type: => 5 Cigarettes daily ETOH Use: occasional use Illicit Drug Use: denies illicit drug use Family History Family History, If Any: MOTHER FH: CVA (cerebrovascular accident) FHx: congenital heart disease FATHER FH: CVA (cerebrovascular accident) Hx Contributory? No Review of Systems Review of Systems Constitutional: Reports: no symptoms. EENTM: Reports: no symptoms. Respiratory: Reports: no symptoms. Cardiovascular: Reports: no symptoms. GI: Reports: no symptoms. Genitourinary: Reports: no symptoms. Musculoskeletal: Reports: no symptoms. Skin: Reports: no symptoms. Neurological/Psychological: Reports: no symptoms. Hematologic/Endocrine: Reports: no symptoms. Immunologic/Allergic: Reports: no symptoms. All Other Systems: Reviewed and Negative Physical Exam Physical Exam General Appearance: well developed/nourished, mild distress Head: atraumatic, normal appearance Eyes: Bilateral: normal appearance. Ears, Nose, Throat: normal pharynx, normal ENT inspection Neck: normal inspection, supple, full range of motion Respiratory: normal breath sounds, no respiratory distress, mid line chest wall tenderness at central incision Cardiovascular: regular rate/rhythm Gastrointestinal: normal bowel sounds, soft, non-tender Back: normal inspection, normal range of motion Extremities: normal inspection, 3+pitting edema in bilateral lower extremities. Neurologic/Psych: no motor/sensory deficits, awake, alert, oriented x 3 Skin: scrotum... mild to moderate scrotal edema Core Measures ACS in differential dx? No CVA/TIA Diagnosis No Sepsis Present: No Sepsis Focused Exam Completed? No Progress Differential Diagnosis: sternal malunion, mi acs vs other. Plan of Care: Orders Procedure Date/time Status TROPONIN LEVEL 11/12 2214 Complete EKG 11/12 2214 Active TROPONIN LEVEL 11/12 1913 Complete LIPASE 11/12 1913 Complete HEPATIC FUNCTION PANEL 11/12 1913 Complete D-DIMER 11/12 1913 Complete CBC WITHOUT DIFFERENTIAL 11/12 1913 Complete BASIC METABOLIC PANEL 11/12 1913 Complete AMYLASE 11/12 1913 Complete EKG 11/12 1836 Active Laboratory Tests 11/12/17 2240: Troponin I 0.06 11/12/17 2002: Anion Gap 8, Estimated GFR > 60, BUN/Creatinine Ratio 15.0, Glucose 136 H, Calcium 8.8, Total Bilirubin 0.2, Direct Bilirubin 0.2, AST 17, ALT 27, Alkaline Phosphatase 167 H, Troponin I 0.05, Total Protein 5.6 L, Albumin 3.0 L, Amylase 80, Lipase 371 H, D-Dimer High Sensitivty 853 H, CBC w Diff NO MAN DIFF REQ, RBC 3.65 L, MCV 83.2, MCH 26.9 L, MCHC 32.3 L, RDW 16.6 H, MPV 7.3 L, Gran % 58.7, Lymphocytes % 26.9, Monocytes % 7.8, Eosinophils % 5.8 H, Basophils % 0.8, Absolute Granulocytes 4.2, Absolute Lymphocytes 1.9, Absolute Monocytes 0.6, Absolute Eosinophils 0.4, Absolute Basophils 0.1 Diagnostic Imaging: Viewed by Me: Radiology Read. Discussed w/RAD: Radiology Read. CXR Impression: PATIENT: GEORGINA RODRIGUEZ PRESENT AGE: 47 PATIENT ACCOUNT NO: [id number] : 70 LOCATION: [facility] ORDERING PHYSICIAN: Gasper Max MD SERVICE DATE: 11/12/17-1913 EXAM TYPE: RAD - XRY- PORTABLE CHEST XRAY EXAMINATION: XR PORTABLE CHEST CLINICAL INFORMATION: Chest pain COMPARISON: Chest x-ray 09/24/2017 TECHNIQUE: Portable frontal view of the chest was obtained. 7:56 PM FINDINGS: Status post median sternotomy. Right IJ catheter tip at caval atrial junction. No acute abnormality. No pulmonary vascular congestion. No pleural effusion and there is no pneumothorax. IMPRESSION: No acute abnormality of the chest. DICTATED BY: Lukas Ramirez MD DATE /TIME DICTATED:11/12/17[address] OPERATOR:ELLIE DATE/TIME TRANSCRIBED: 11/12/172023 CONFIDENTIAL, DO NOT COPY WITHOUT APPROPRIATE AUTHORIZATION. < Electronically signed in Other Vendor System> SIGNED BY: Lukas Ramirez MD 2027 Initial ED EKG: sinus, no acute changes Repeat EKG: unchanged Departure Departure Disposition: HOME OR SELF CARE Condition: Stable Clinical Impression Primary Impression: Chest wall pain Secondary Impressions: Left against medical advice, Lower extremity edema, Scrotal edema Referrals: Carlene LYON,Cody Oviedo (PCP/Family) Departure Forms: Customer Survey General Discharge Information Prescriptions: Current Visit Scripts Oxymorphone HCl (Opana) 1 TAB PO TID PRN pain #10 TAB ten... [id number] Comments 11/13/17, 0:25am... pt with reproducible chest wall pain at incision, improved with pain meds... trop neg x 2, ekg benign x 2. elevated d-dimer noted... discussed at length with patient. he declines ct scan... "i've had so many scans... I can't stay here any more." He understands the risk of blood clots, including . "I just want to go home... If the pain returns, I'll come back." He notes lower extremity edema for which he started lasix today. He will follow up with his physicians on wednesday. Of note, given the interaction between rifampin and most narcotics, he asks for hydromorphone or oxymorphone at the recommendation of a pharmacist that has minimal interaction with rifampin... I sent 10 pills of oxymorphine to pharmacy Critical Care Note Critical Care Note Critical Care Time: non-applicable
[2017-11-12 20:15] LABS: ABSOLUTE BASOPHIL COUNT 0.1 /CUMM (0.0-0.2); ABSOLUTE EOSINOPHIL COUNT 0.4 /CUMM (0.0-0.7); ABSOLUTE GRANULOCYTE CT 4.2 /CUMM (1.4-6.5); ABSOLUTE LYMPH COUNT 1.9 /CUMM (1.2-3.4); ABSOLUTE MONOCYTE COUNT 0.6 /CUMM (0.10-0.60); BASOPHIL % 0.8 % (0.0-2.0); EOSINOPHIL % 5.8 % (0-5); GRANULOCYTE % 58.7 % (42.2-75.2); HEMATOCRIT 30.4 % (42-52); MEAN CORPUSCULAR HGB 26.9 PG (27.0-31.0); MEAN CORPUSCULAR HGB CONC 32.3 G/DL (33.0-37.0); MEAN CORPUSCULAR VOLUME 83.2 FL (80.0-94.0); MEAN PLATELET VOLUME 7.3 FL (7.4-10.4); PLATELET COUNT 331 /CUMM (130-400); RBC DISTRIBUTION WIDTH 16.6 % (11.5-14.5); RED BLOOD CELL CT 3.65 /CUMM (4.70-6.10); WHITE BLOOD CELL COUNT 7.1 /CUMM (4.8-10.8)
--- NOTE | 2017-11-12 20:28 | RADIOLOGY REPORT ---
EXAMINATION: XR PORTABLE CHEST CLINICAL INFORMATION: Chest pain COMPARISON: Chest x-ray 09/24/2017 TECHNIQUE: Portable frontal view of the chest was obtained. 7:56 PM FINDINGS: Status post median sternotomy. Right IJ catheter tip at caval atrial junction. No acute abnormality. No pulmonary vascular congestion. No pleural effusion and there is no pneumothorax. IMPRESSION: No acute abnormality of the chest.
[2017-11-12 21:10] VITALS: BP 152/68
[2017-11-12] MEDS ORDERED: FUROSEMIDE20 M1 PO (21:40)
[2017-11-12] MEDS ORDERED: POTASSIUM CHLO20 ME2 PO (21:41)
[2017-11-12] MEDS ORDERED: ALEVE220 M1 PO (21:41)
[2017-11-12] MEDS ORDERED: ASPIRIN325 M2 PO (21:42)
[2017-11-12] MEDS ORDERED: DOXYCYCLINE HY100 M2 PO (21:43)
[2017-11-12] MEDS ORDERED: RIFAMPIN300 M1 PO (21:44)
[2017-11-12] MEDS ORDERED: VANCOMYCIN2 GM/500 M IV (21:46)
[2017-11-12] MEDS ORDERED: SODIUM CHLORIDE50 M2 IV (21:47)
[2017-11-12] MEDS ORDERED: ATHENOL325 MG PO (21:48)
[2017-11-12] MEDS ORDERED: AMLODIPINE BES2.5 M1 PO (21:48)
[2017-11-12] MEDS ORDERED: ASPIRIN EC325 M2 PO (21:49)
[2017-11-12] MEDS ORDERED: NYSTOP60 GM TOP (21:50)
[2017-11-12] MEDS ORDERED: GABAPENTIN600 M1 PO (21:50)
[2017-11-12] MEDS ORDERED: PANTOPRAZOLE SO40 M1 PO (21:51)
[2017-11-13] MEDS ORDERED: OPANA10 M1 PO (00:32)
== END 2017-11-13 00:30 ==
LOC: ERH 18:34
PROVIDERS: Pediatrics
DX: R07.89 Other chest pain (principal); R60.0 Localized edema; N50.89 Other specified disorders of the male genital organs; R06.00 Dyspnea, unspecified; R50.9 Fever, unspecified; M54.9 Dorsalgia, unspecified
CPT/HCPCS: 71045; 93005; 93010; 96374; 99291; J1642

== ENCOUNTER 2017-11-16 09:05 | Emergency (ER) | payer OTHER ==
[~2017-11-16] VITALS: Ht 177.8 cm; Wt 186.0 kg
[~2017-11-16 09:05] MED LIST changes: +ALEVE220 M1 PO; +AMLODIPINE BES2.5 M1 PO; +ASPIRIN EC325 M2 PO; +ASPIRIN325 M2 PO; +ATHENOL325 MG PO; +DOXYCYCLINE HY100 M2 PO; +FUROSEMIDE20 M1 PO; +GABAPENTIN600 M1 PO; +NYSTOP60 GM TOP; +OPANA10 M1 PO; +PANTOPRAZOLE SO40 M1 PO; +POTASSIUM CHLO20 ME2 PO; +RIFAMPIN300 M1 PO; +SODIUM CHLORIDE50 M2 IV; +VANCOMYCIN2 GM/500 M IV
--- NOTE | 2017-11-16 09:32 | ED GENERAL ADULT ---
History of Present Illness General Chief Complaint: General Adult Stated Complaint: BIBA, DIFF AMBULATING/LE SWELLING Source: patient, old records Exam Limitations: no limitations Vital Signs & Intake/Output Vital Signs & Intake/Output Vital Signs Date Time Temp Pulse Resp B/P B/P Pulse O2 O2 Flow FiO2 Mean Ox Delivery Rate 11/16 1157 98.0 90 20 145/86 95 Room Air 11/16 0912 98.1 94 20 182/88 96 Room Air ED Intake and Output 11/17 0000 11/16 1200 Intake Total Output Total Balance Patient 410 lb Weight Weight Reported by Patient Measurement Method Allergies Coded Allergies: No Known Allergies (11/12/17) Reconcile Medications 0.9 % Sodium Chloride (Sodium Chloride) 0.9 % SYRINGE 3 ML IV PUSH PRN LINE FLUSH (Reported) Acetaminophen (Athenol) 325 MG TABLET 2 TAB PO Q6H PRN PAIN (Reported) Amlodipine Besylate 2.5 MG TABLET 1 TAB PO DAILY BP (Reported) Aspirin (Ecotrin*) 325 MG TABLET.DR 1 TAB PO DAILY HEART/BLOOD (Reported) Atorvastatin Calcium 40 MG TABLET 1 TAB PO DAILY HIGH CHOLESTEROL (Reported) Doxycycline Hyclate 100 MG CAPSULE 1 CAP PO Q12H ABX (Reported) Furosemide 20 MG TABLET 1 TAB PO DAILY DIURETIC (Reported) Gabapentin 600 MG TABLET 1 TAB PO TID NERVE PAIN (Reported) Metoprolol Tartrate 25 MG TABLET 0.5 TAB PO BID [facility] . Naproxen Sodium (Aleve) 220 MG CAPSULE 2 CAP PO DAILY PAIN/INFLAMMATION ( Reported) Nystatin (Nystop) 100,000 UNIT/GRAM POWDER 1 JEROD TOP BID SKIN (Reported) Oxycodone HCl 10 MG TABLET 1 TAB PO Q6P severe pain Oxymorphone HCl (Opana) 10 MG TABLET 1 TAB PO TID PRN pain ten... [id number] Pantoprazole Sodium 40 MG TABLET.DR 1 TAB PO Q12H GI (Reported) Potassium Chloride 20 MEQ TAB.ER.PRT 1 TAB PO DAILY SUPPLEMENT (Reported) Rifampin 300 MG CAPSULE 1 CAP PO Q8H ABX (Reported) Testosterone Cypionate 200 MG/ML VIAL 1 ML IM Q2W LOW TESTOSTERONE (Reported) Vancomycin/0.9 % Sod Chloride (Vancomycin-0.9% NaCl 2 G/500) 2 GRAM/500 ML PLAST..BAG 2 G IV DAILY ABX (Reported) Triage Note: PT BIBA FROM HOME FOR C/O CHEST PAIN AND WORSENING B/L LE EDEMA. PT IS S/P MITRAL VALVE REPLACEMENT AT [facility] ABOUT 1 MONTH AGO. STATES HE HAS BEEN ON AND OFF LASIX, DOESNT HAVE F/U CARDIO APPT FOR A WHILE. STATES EDEMA IS GETTING WORSE AND MORE PAINFUL. C/O 7/10 CONSTANT CHEST PAIN SINCE THE SURGERY. AWAITING PROVIDER EVAL. Triage Nurses Notes Reviewed? yes Onset: Abrupt Duration: week(s): (4), constant, continues in ED, getting worse Timing: recent history Injury Environment: home Severity: moderate, severe Severity Numbers: 7 No Modifying Factors: none Modifying Factors: Worsens With: movement. HPI: 47-year-old male history of hypertension hyperlipidemia, one month status post mitral valve replacement due to endocarditis currently on IV vancomycin presents for evaluation of worsening lower extremity edema, shortness of breath and chest pain. Patient reports the symptoms have been present since his surgery and has been getting worse. The pain is located in the bilateral lower extremities and is getting worse. He reports he initially was on 40 mg of Lasix but this was decreased to 20 about 4 days ago due to decreased kidney function. He reports that he is only able to walk about 10 steps due to pain and heaviness in his legs as well as shortness of breath. Shortness breath is also present when he lays back. He also reports she's had sternal chest pain in the area of the incision that has been present for the past month. No hemoptysis but he has had a dry cough. No fevers. He was seen here several days ago with a similar complaint and left AGAINST MEDICAL ADVICE. He did not get a CTA even though his d-dimer was significantly elevated. He has not yet followed up with his shell molding roller blast operator or surgeons surgery. HAS Also not notified his shell molding roller blast operator of these problems. (Misha Ureña) Past History Travel History Traveled to [place] past 21 day No Medical History Any Pertinent Medical History? see below for history Neurological: NONE EENT: NONE Cardiovascular: hypertension, hyperlipidemia Respiratory: NONE Gastrointestinal: NONE Hepatic: NONE Renal: NONE Musculoskeletal: sciatica, DISC PROBLEM Psychiatric: NONE Endocrine: LOW TESTOSTERONE Blood Disorders: NONE Cancer(s): NONE DENTAL PROSTHETIST/Reproductive: NONE History of MRSA: No History of VRE: No History of CDIFF: No Surgical History Surgical History: non-contributory Psychosocial History Who do you live with Mother Services at Home None What is your primary language South African Tobacco Use: Current Daily Use Daily Tobacco Use Amount/Type: => 5 Cigarettes daily ETOH Use: denies use Illicit Drug Use: denies illicit drug use Family History Family History, If Any: MOTHER FH: CVA (cerebrovascular accident) FHx: congenital heart disease FATHER FH: CVA (cerebrovascular accident) Hx Contributory? No (Misha Ureña) Review of Systems Review of Systems Constitutional: Reports: weakness. EENTM: Reports: no symptoms. Respiratory: Reports: see HPI, cough, short of breath. Cardiovascular: Reports: see HPI, chest pain, edema. GI: Reports: no symptoms. Genitourinary: Reports: no symptoms. Musculoskeletal: Reports: see HPI, joint pain, muscle pain, muscle stiffness. Skin: Reports: see HPI, erythema. Neurological/Psychological: Reports: no symptoms. Hematologic/Endocrine: Reports: no symptoms. Immunologic/Allergic: Reports: no symptoms. All Other Systems: Reviewed and Negative (Misha Ureña) Physical Exam Physical Exam General Appearance: well developed/nourished, no apparent distress, alert, awake Head: atraumatic, normal appearance Eyes: Bilateral: normal appearance, PERRL, EOMI. Ears, Nose, Throat: normal pharynx, normal ENT inspection, hearing grossly normal Neck: normal inspection, supple, full range of motion Respiratory: quiet respiration, decreased breath sounds, crackles, CRACKLES AT THE BASES. dIMINISHED BREATH SOUNDS. cHEST WALL TENDERNESS PALPATION DIFFUSELY Cardiovascular: regular rate/rhythm, normal peripheral pulses Peripheral Pulses: 2+ radial (R), 2+ radial (L) Gastrointestinal: normal bowel sounds, soft, non-tender, no organomegaly, distention Back: normal inspection, normal range of motion, no vertebral tenderness Extremities: limited range of motion, THERE IS DIFFUSE BILATERAL LOWER EXTREMITY EDEMA WITH ERYTHEMA. tHE LOWER EXTREMITIES ARE DIFFUSELY TENDER TO PALPATION Neurologic/Psych: no motor/sensory deficits, awake, alert, oriented x 3, normal gait Skin: intact, normal color, warm/dry Core Measures ACS in differential dx? No CVA/TIA Diagnosis: No Sepsis Present: No Sepsis Focused Exam Completed? No (Misha Ureña) Progress Differential Diagnoses I considered the following diagnoses in my evaluation of the patient: [CHF exacerbation, COPD exacerbation, acute coronary syndrome, PE/dvt, pneumonia, aortic dissection, endocarditis, myocarditis, pericarditis] Plan of Care: Orders Procedure Date/time Status Regular Diet 11/16 L Active TROPONIN LEVEL 11/16 1400 Complete EKG 11/16 1400 Active Vital Signs 11/16 1337 Complete Activity/Ambulation 11/16 1337 Complete Code Status 11/16 1337 Active Add-on Test (ER Only) 11/16 0944 Active MAGNESIUM 11/16 09 Complete LIPASE 11/16 909 Complete COMPREHENSIVE METABOLIC PANEL 11/16 909 Complete CBC WITHOUT DIFFERENTIAL 11/16 909 Complete B-TYPE NATRIURETIC PEP (BNP) 11/16 909 Complete EKG 11/16 909 Active Laboratory Tests 11/16/17 1430: Troponin I 0.04 11/16/17 1000: Anion Gap 10, Estimated GFR > 60, BUN/Creatinine Ratio 15.0, Glucose 98, Calcium 9.2, Magnesium 2.3, Total Bilirubin 0.4, AST 38, ALT 16 L, Alkaline Phosphatase 162 H, Cih-A-[id number] Pept 2280 H, Total Protein 5.9 L, Albumin 3.3 L, Globulin 2.6, Albumin/Globulin Ratio 1.3, Lipase 168, CBC w Diff NO MAN DIFF REQ , RBC 3.68 L, MCV 82.9, MCH 26.8 L, MCHC 32.4 L, RDW 16.1 H, MPV 7.7, Gran % 61.2, Lymphocytes % 24.0, Monocytes % 10.4 H, Eosinophils % 3.7, Basophils % 0.7, Absolute Granulocytes 4.3, Absolute Lymphocytes 1.7, Absolute Monocytes 0.7 H, Absolute Eosinophils 0.3, Absolute Basophils 0 11/16/17 0910: Methadone Screen Cancelled, Barbiturate Screen Cancelled, Ur Phencyclidine Scrn Cancelled, Amphetamines Screen Cancelled, U Benzodiazepines Scrn Cancelled, Urine Cocaine Screen Cancelled, Urine Cannabis Screen Cancelled, Urine Color Cancelled, Urine Clarity Cancelled, Urine pH Cancelled, Ur Specific [place] Cancelled, Urine Protein Cancelled, Urine Ketones Cancelled, Urine Nitrite Cancelled, Urine Bilirubin Cancelled, Urine Urobilinogen Cancelled, Ur Leukocyte Esterase Cancelled, Ur Microscopic Cancelled, Urine Hemoglobin Cancelled, Urine Glucose Cancelled Patient is here with lower extremity edema and chest pain that has been present since she had a mitral valve replacement 1 month ago. He has not followed up with his surgeon or shell molding roller blast operator. On exam he has bilateral lower extremity edema. He left AMA a few days ago and had an elevated d-dimer at that time. Labs EKG CTA ordered. EKG shows worsening T-wave inversions and ST depressions in the lateral chest leads. Patient does report chest pain or shortness of breath on exertion. His BNP is elevated. Initial troponin negative. CTA is negative for PE. Dr. WILSON spoke with the [facility] cardiology who recommended admission for IV diuresis serial labs, cardiology consult, echocardiogram, telemetry. DR WILSON SPOKE WITH ADMITTING ATTENDING. The patient just informed me that he would like to leave AGAINST MEDICAL ADVICE. He states that he'll follow-up with his doctors as an outpatient. Explained patient about the possible negative health effects that include or permanent disability if he leaves before his complete evaluation/admission. Patient is alert and oriented 3 he understands these risks. It is not clear why he wishes to leave. He left against AMA during the previous visit. ama for signed. disucssed return precauitons. case discussed with dr wilson. Diagnostic Imaging: Viewed by Me: CT Scan. Discussed w/RAD: CT Scan. Radiology Impression: PATIENT: GEORGINA RODRIGUEZ PRESENT AGE: 47 PATIENT ACCOUNT NO: [id number] : 70 LOCATION: [facility] ORDERING PHYSICIAN: Misha KNOWLES SERVICE DATE: 11/16/17 EXAM TYPE: CAT - CTA CHEST-PULMONARY EMBOLISM EXAMINATION: CT ANGIOGRAM OF THE CHEST WITH AND WITHOUT CONTRAST (CT PULMONARY ANGIOGRAM FOR PE) CLINICAL INFORMATION: SOB, CHEST PAIN, LOWER EXTREMITY EDEMA COMPARISON: Radiograph 11/12/2017. CT 09/24/2017. TECHNIQUE: Prior to contrast administration, noncontrast localization images were obtained. Subsequently, multidetector volumetric imaging was performed from the thoracic inlet to below the diaphragms following the administration of 95 mL Optiray 320 intravenous contrast. No contrast reaction reported. Sagittal, coronal, and MIP oblique sagittal reformatted images were obtained on the CT workstation, uploaded to PACS, and reviewed. Total exam dose-length product 977 mGy-cm. FINDINGS: QUALITY OF STUDY/CONTRAST BOLUS: Satisfactory PULMONARY ARTERIES: No central or segmental pulmonary emboli. THORACIC AORTA: No aneurysm or dissection. LUNG: The central airways are patent. Bilateral dependent subsegmental atelectasis. No additional consolidation. No suspicious pulmonary nodule. PLEURA: No pleural effusion or pneumothorax. MEDIASTINUM: The heart is prominent. Coronary artery calcifications are present. There is a right internal jugular central venous catheter which terminates near the cavoatrial junction. No pericardial effusion. No mediastinal lymphadenopathy. The patient is status post median sternotomy. Small amount of fluid deep to the sternotomy. Epicardial pacer wires are present. No evidence of septal bowing or right heart strain. CHEST WALL/AXILLA: No axillary or internal mammary lymphadenopathy. OSSEOUS STRUCTURES: No acute or suspicious osseous abnormality. Degenerative changes noted in the spine. UPPER ABDOMEN: Unremarkable. No reflux of contrast into the hepatic veins to suggest elevated right heart pressures. IMPRESSION: 1. No pulmonary embolism. 2. Bibasilar subsegmental atelectasis. 3. Status post median sternotomy. Small amount of fluid deep to the sternotomy without evidence of collection. VTE: negative DICTATED BY: Jason Mata MD DATE/TIME DICTATED: 11/16/171311 BUSINESS INTELLIGENCE ADMINISTRATOR:ELLIE DATE/TIME TRANSCRIBED:11/16/171311 CONFIDENTIAL, DO NOT COPY WITHOUT APPROPRIATE AUTHORIZATION. <Electronically signed in Other Vendor System> SIGNED BY: Jason Mata MD 11/16/17 1321 Initial ED EKG: normal sinus rhythm, DIFFUSE st AND t-WAVE CHANGES WORSE IN THE LATERAL LEADS Prior EKG: changed (WORSENING st-t WAVE CHANGES) Repeat EKG: changed (IMPROVES t-WAVE CHANGES CHEST) (Misha Ureña) Departure Departure Disposition: LEFT AGAINST MEDICAL ADVICE Condition: Stable Clinical Impression Primary Impression: CHF (congestive heart failure) Qualifiers: Heart failure type: unspecified Heart failure chronicity: acute Qualified Code: I50.9 - Heart failure, unspecified Secondary Impressions: Acute electrocardiogram changes Referrals: Carlene LYON,Cody Oviedo (PCP/Family) Additional Instructions: You're leaving against medical advice. It is recommended YOU stay for further evaluation and treatment. Not staying for further evaluation could lead to negative health effects that include or permanent disability. It is recommended that YOU take 40 mg of Lasix once daily. Make a follow-up with YOUr shell molding roller blast operator on as scheduled. Monitor symptoms return with any concern. Departure Forms: Customer Survey General Discharge Information (Misha Ureña) PA/MANAGER SERVICE DESK Co-Sign Statement Statement: ED Attending supervision documentation- I saw and evaluated the patient. I have also reviewed all the pertinent lab results and diagnostic results. I agree with the findings and the plan of care as documented in the PA's/MANAGER SERVICE DESK's documentation. x I have reviewed the ED Record and agree with the PA's/MANAGER SERVICE DESK's documentation. [] Additions or exceptions (if any) to the PAs/MANAGER SERVICE DESK's note and plan are summarized below: [] (Car LYON,Jean-Paul) Critical Care Note Critical Care Note Critical Care Time: non-applicable (Misha Ureña)
[2017-11-16 10:33] LABS: ABSOLUTE BASOPHIL COUNT 0 /CUMM (0.0-0.2); ABSOLUTE EOSINOPHIL COUNT 0.3 /CUMM (0.0-0.7); ABSOLUTE GRANULOCYTE CT 4.3 /CUMM (1.4-6.5); ABSOLUTE LYMPH COUNT 1.7 /CUMM (1.2-3.4); ABSOLUTE MONOCYTE COUNT 0.7 /CUMM (0.10-0.60); BASOPHIL % 0.7 % (0.0-2.0); EOSINOPHIL % 3.7 % (0-5); GRANULOCYTE % 61.2 % (42.2-75.2); HEMATOCRIT 30.5 % (42-52); MEAN CORPUSCULAR HGB 26.8 PG (27.0-31.0); MEAN CORPUSCULAR HGB CONC 32.4 G/DL (33.0-37.0); MEAN CORPUSCULAR VOLUME 82.9 FL (80.0-94.0); MEAN PLATELET VOLUME 7.7 FL (7.4-10.4); PLATELET COUNT 345 /CUMM (130-400); RBC DISTRIBUTION WIDTH 16.1 % (11.5-14.5); RED BLOOD CELL CT 3.68 /CUMM (4.70-6.10)
[2017-11-16 11:57] VITALS: BP 145/86
--- NOTE | 2017-11-16 13:21 | CT SCAN REPORT ---
EXAMINATION: CT ANGIOGRAM OF THE CHEST WITH AND WITHOUT CONTRAST (CT PULMONARY ANGIOGRAM FOR PE) CLINICAL INFORMATION: SOB, CHEST PAIN, LOWER EXTREMITY EDEMA COMPARISON: Radiograph 11/12/2017. CT 09/24/2017. TECHNIQUE: Prior to contrast administration, noncontrast localization images were obtained. Subsequently, multidetector volumetric imaging was performed from the thoracic inlet to below the diaphragms following the administration of 95 mL Optiray 320 intravenous contrast. No contrast reaction reported. Sagittal, coronal, and MIP oblique sagittal reformatted images were obtained on the CT workstation, uploaded to PACS, and reviewed. Total exam dose-length product 977 mGy-cm. FINDINGS: QUALITY OF STUDY/CONTRAST BOLUS: Satisfactory PULMONARY ARTERIES: No central or segmental pulmonary emboli. THORACIC AORTA: No aneurysm or dissection. LUNG: The central airways are patent. Bilateral dependent subsegmental atelectasis. No additional consolidation. No suspicious pulmonary nodule. PLEURA: No pleural effusion or pneumothorax. MEDIASTINUM: The heart is prominent. Coronary artery calcifications are present. There is a right internal jugular central venous catheter which terminates near the cavoatrial junction. No pericardial effusion. No mediastinal lymphadenopathy. The patient is status post median sternotomy. Small amount of fluid deep to the sternotomy. Epicardial pacer wires are present. No evidence of septal bowing or right heart strain. CHEST WALL/AXILLA: No axillary or internal mammary lymphadenopathy. OSSEOUS STRUCTURES: No acute or suspicious osseous abnormality. Degenerative changes noted in the spine. UPPER ABDOMEN: Unremarkable. No reflux of contrast into the hepatic veins to suggest elevated right heart pressures. IMPRESSION: 1. No pulmonary embolism. 2. Bibasilar subsegmental atelectasis. 3. Status post median sternotomy. Small amount of fluid deep to the sternotomy without evidence of collection. VTE: negative
== END 2017-11-16 14:56 | disposition left against medical advice (07) ==
LOC: ERH 09:05 → ENRESERV 14:29 → CANRESERV 14:29 → ERH 14:56 → CMPBEDREQ 11-17 09:18
PROVIDERS: Physician Assistant Medical
DX: I50.9 Heart failure, unspecified (principal); R94.31 Abnormal electrocardiogram [ECG] [EKG]; R06.02 Shortness of breath; R07.9 Chest pain, unspecified; R60.0 Localized edema; F17.210 Nicotine dependence, cigarettes, uncomplicated
CPT/HCPCS: 80307; 93005; 93010; J0131; J1940

== ENCOUNTER 2017-12-02 02:44 | Emergency (ER) | payer OTHER ==
[~2017-12-02] VITALS: Ht 177.8 cm; Wt 169.2 kg
--- NOTE | 2017-12-02 02:53 | ED CARDIAC/CP/PALPITATIONS ---
History of Present Illness General Chief Complaint: Chest Pain Stated Complaint: BIBA, CP Source: patient, old records Exam Limitations: no limitations Vital Signs & Intake/Output Vital Signs & Intake/Output Vital Signs Date Time Temp Pulse Resp B/P B/P Pulse O2 O2 Flow FiO2 Mean Ox Delivery Rate 12/02 0503 98.1 95 18 142/70 97 Room Air 12/02 0245 100 Room Air 12/02 0245 98.0 97 18 147/72 97 Room Air Allergies Coded Allergies: No Known Allergies (11/12/17) Reconcile Medications 0.9 % Sodium Chloride (Sodium Chloride) 0.9 % SYRINGE 3 ML IV PUSH PRN LINE FLUSH (Reported) Acetaminophen (Athenol) 325 MG TABLET 2 TAB PO Q6H PRN PAIN (Reported) Amlodipine Besylate 2.5 MG TABLET 1 TAB PO DAILY BP (Reported) Aspirin (Ecotrin*) 325 MG TABLET.DR 1 TAB PO DAILY HEART/BLOOD (Reported) Atorvastatin Calcium 40 MG TABLET 1 TAB PO DAILY HIGH CHOLESTEROL (Reported) Doxycycline Hyclate 100 MG CAPSULE 1 CAP PO Q12H ABX (Reported) Furosemide 20 MG TABLET 1 TAB PO DAILY DIURETIC (Reported) Gabapentin 600 MG TABLET 1 TAB PO TID NERVE PAIN (Reported) Meloxicam 15 MG TABLET 1 TAB PO DAILY PRN pain Metoprolol Tartrate 25 MG TABLET 0.5 TAB PO BID Heart Health . Naproxen Sodium (Aleve) 220 MG CAPSULE 2 CAP PO DAILY PAIN/INFLAMMATION ( Reported) Nystatin (Nystop) 100,000 UNIT/GRAM POWDER 1 JEROD TOP BID SKIN (Reported) Oxycodone HCl 10 MG TABLET 1 TAB PO Q6P severe pain Oxymorphone HCl (Opana) 10 MG TABLET 1 TAB PO TID PRN pain ten... [id number] Pantoprazole Sodium 40 MG TABLET.DR 1 TAB PO Q12H GI (Reported) Potassium Chloride 20 MEQ TAB.ER.PRT 1 TAB PO DAILY SUPPLEMENT (Reported) Rifampin 300 MG CAPSULE 1 CAP PO Q8H ABX (Reported) Testosterone Cypionate 200 MG/ML VIAL 1 ML IM Q2W LOW TESTOSTERONE (Reported) Vancomycin/0.9 % Sod Chloride (Vancomycin-0.9% NaCl 2 G/500) 2 GRAM/500 ML PLAST..BAG 2 G IV DAILY ABX (Reported) Triage Note: TRIAGE: PATIENT TO ER FROM [facility] W/ C/O R CHEST/ ARMPIT PAIN X 3 HOURS, "FEELS MUSCULAR."W10 STATES "RESIDENT C/O PAIN TO R ARM AND CATHATER SITE. [facility] TO [facility], STATES LAST ACCESSED TODAY. PAIN 3/10 THOUGH REPORTS IS INC W/ ANY MVMT. HX MITRAL VALVE REPLACEMENT 1 MONTH AGO. Triage Nurses Notes Reviewed? yes HPI: 47 YO M with PMH for HTN, HLD, mitral valve replacement in october 2017, atrial flutter on coumadin, bilateral leg swelling, endocarditis on vancomycin/rifampin for 6 weeks, TIFFANIE on CPAP, hypogonadism, sciatica (recently diagnosed) who presented to [facility] with chief complaint of right-sided chest pain. Patient was brought from [facility] by EMS. According to patient he was in his usual state of health since this afternoon when he suddenly noticed having right-sided chest pain, 3/10 at rest and 8/10 on movement, continuous, sharp, aggravated with movement and deep breathing. According to patient pain relieved if he doesn't move his arm. He reported that his pain starts from right axilla to right breast. He also reported that he fell down today when he tripped while in wheel chair at [facility]'s. He reported that his pain started after the fall. Patient denied any central chest pain, palpitation, nausea, vomiting, chills, fever, diarrhea, constipation, sick contact, abdominal pain and dysuria. Patient reported that he was discharged from [place] 2 weeks back. He was admitted for atrial flutter and bilateral leg swelling. Patient is taking Coumadin for his atrial flutter and on Lasix for leg swelling. Patient is taking vancomycin and rifampin to complete 6 weeks through central IV line. He is going to complete his 6 weeks of antibiotics on 12 of December. (Robert LYON,[place]) Past History Travel History Traveled to [place] past 21 day No Medical History Any Pertinent Medical History? 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 No (Robert LYON,[place]) Review of Systems Review of Systems Constitutional: Denies: chills, fever, weakness. EENTM: Reports: no symptoms. Respiratory: Denies: cough, orthopnea, short of breath, sputum production, wheezing. Cardiovascular: Reports: chest pain. Denies: orthopena, palpitations, syncope. GI: Denies: abdominal pain, constipation, diarrhea, nausea, vomiting. Genitourinary: Reports: no symptoms. Musculoskeletal: Reports: see HPI. Neurological/Psychological: Reports: no symptoms. (Robert LYON,[place]) Physical Exam Physical Exam General Appearance: well developed/nourished, no apparent distress, alert, awake Head: atraumatic, normal appearance Eyes: Bilateral: normal appearance, PERRL, EOMI. Ears, Nose, Throat: normal pharynx, normal ENT inspection, hearing grossly normal Neck: normal inspection, supple Respiratory: normal breath sounds, chest non-tender, no respiratory distress Cardiovascular: regular rate/rhythm, scar gisele on chest from surgery, central venous catheter. Gastrointestinal: normal bowel sounds, soft, non-tender Back: normal inspection, normal range of motion Extremities: swelling, b/l leg swelling and mild erythema Neurologic/Psych: no motor/sensory deficits, awake, alert, oriented x 3 Core Measures ACS in differential dx? No CVA/TIA Diagnosis No Sepsis Present: No Sepsis Focused Exam Completed? No (Robert LYONRedgranite) Progress Differential Diagnosis: costochondritis, musculoskeletal pain, pneumothorax, Muscle strain, pleuritis Plan of Care: Orders Procedure Date/time Status TROPONIN LEVEL 12/02 0253 Complete PARTIAL THROMBOPLASTIN TIME 12/02 025 Complete PROTHROMBIN TIME 12/02 025 Complete COMPREHENSIVE METABOLIC PANEL 12/02 025 Complete CBC WITHOUT DIFFERENTIAL 12/02 252 Complete EKG 12/02 0245 Active Laboratory Tests 12/02/17 0255: Anion Gap 15, Estimated GFR 50 L, BUN/Creatinine Ratio 14.0, Glucose 116 H, Calcium 9.7, Total Bilirubin 0.7, AST 24, ALT 40, Alkaline Phosphatase 146 H, Troponin I 0.06, Total Protein 7.4, Albumin 4.4, Globulin 3.0, Albumin/Globulin Ratio 1.5, PT 18.0 H, INR 1.64 H, APTT 43 H, CBC w Diff NO MAN DIFF REQ, RBC 4.37 L, MCV 80.4, MCH 25.7 L, MCHC 32.0 L, RDW 16.7 H, MPV 8.3, Gran % 56.4, Lymphocytes % 26.2, Monocytes % 12.0 H, Eosinophils % 4.6, Basophils % 0.8, Absolute Granulocytes 5.4, Absolute Lymphocytes 2.5, Absolute Monocytes 1.1 H, Absolute Eosinophils 0.4, Absolute Basophils 0.1 Initial ED EKG: NSR, LVH Comments: 47 YO M with PMH for HTN, HLD, mitral valve replacement in october 2017, atrial flutter on coumadin, bilateral leg swelling, endocarditis on vancomycin/rifampin for 6 weeks, TIFFANIE on CPAP, hypogonadism, sciatica (recently diagnosed) who presented to [facility] with chief complaint of right-sided chest pain. Patient was brought from [facility] by EMS. Possibly patient has musculoskeletal pain. We will continue his home medications and will give him meloxicam for muscle pain. Patient was advised to avoid physical therapy of right arm. We will follow up his labs. His lab work is normal except creatinine that's 1.5. His EKGs and troponin is negative for any ischemic cardiac injury. We will discharge the patient on meloxicam. We'll advise the patient to see primary care physician within one week. (Robert YLON,Jaya) Departure Departure Disposition: ACUTE REHAB FACILITY Condition: Stable Clinical Impression Primary Impression: Musculoskeletal pain Referrals: Kev LYON,Estefany Rao (PCP/Family) Additional Instructions: Please follow up with your primary care physician in one week. Please take your medications regularly. Please avoid physical therapy of right arm. Departure Forms: Customer Survey General Discharge Information Prescriptions: Current Visit Scripts Meloxicam 1 TAB PO DAILY PRN pain #15 TAB (Jaya Jones MD) Resident Co-Sign Statement Statement: ED Attending supervision documentation- [X] I saw and evaluated the patient. I have also reviewed all the pertinent lab results and diagnostic results. I agree with the findings and the plan of care as documented in the Resident's documentation. [] I have reviewed the ED Record and agree with the Resident's documentation. [] Additions or exceptions (if any) to the Resident's note and plan are summarized below: [] (Dona LYON,Gustavo Grant) Critical Care Note Critical Care Note Critical Care Time: non-applicable (Robert LYON,Jaya)
[2017-12-02 03:08] LABS: ABSOLUTE BASOPHIL COUNT 0.1 /CUMM (0.0-0.2); ABSOLUTE EOSINOPHIL COUNT 0.4 /CUMM (0.0-0.7); ABSOLUTE GRANULOCYTE CT 5.4 /CUMM (1.4-6.5); ABSOLUTE LYMPH COUNT 2.5 /CUMM (1.2-3.4); ABSOLUTE MONOCYTE COUNT 1.1 /CUMM (0.10-0.60); BASOPHIL % 0.8 % (0.0-2.0); EOSINOPHIL % 4.6 % (0-5); GRANULOCYTE % 56.4 % (42.2-75.2); HEMATOCRIT 35.1 % (42-52); MEAN CORPUSCULAR HGB 25.7 PG (27.0-31.0); MEAN CORPUSCULAR VOLUME 80.4 FL (80.0-94.0); MEAN PLATELET VOLUME 8.3 FL (7.4-10.4); PLATELET COUNT 341 /CUMM (130-400); RBC DISTRIBUTION WIDTH 16.7 % (11.5-14.5); RED BLOOD CELL CT 4.37 /CUMM (4.70-6.10); WHITE BLOOD CELL COUNT 9.6 /CUMM (4.8-10.8)
[2017-12-02 03:33] LABS: PTT 43 SEC (25-37)
[2017-12-02] MEDS ORDERED: MELOXICAM15 M1 PO (03:52)
[2017-12-02 05:03] VITALS: BP 142/70
== END 2017-12-02 05:04 ==
LOC: ERH 02:44 → EDBD 02:48 → ERH 02:48
PROVIDERS: Emergency Medicine
DX: R07.89 Other chest pain (principal)
CPT/HCPCS: 93005; 93010